=== PATIENT | male | born 1955 | race Caucasian/White ===

== ENCOUNTER 2019-07-23 14:53 | Outpatient (RCR) | payer MEDICARE, MEDICAID, SELFPAY ==
--- NOTE | 2019-07-23 15:35 | PTOPEVAL ---
Thank you for referring this patient to [facility]. Please review, sign, date and return this plan of care RHONA. I agree with and certify that the following plan of care is medically necessary. Referring Physician Date Admitting Provider: Attending Provider: Mae Ugalde MD Referring Provider: *PT Outpatient Evaluation Start: 07/23/19 15:06 Freq: Status: Active Protocol: Document 07/23/19 15:06 SAUMYA (Rec: 07/23/19 15:29 [email or web address]) Therapy Assessment Status Assessment Status Assessment Status Evaluation Evaluation Information Problem Diagnosis right shoulder pain Onset 06/05/19 Subjective Information Pt. reports that he injured Query Text:As Reported By Patient/ the arm lifting his into Family a car while transfering her about 1 1/2 months ago. Pt. reports that his biggest complication is weakness and stiffness in the right shoulder. He reports that his goal is to use the right arm more efficiently. Diagnostic Tests X-Rays For This Problem Yes: DJD MRI For This Problem Yes: possible rotator cuff pathology per pt. Prior Level of Function Activity Level (Last 3 Months) Hand Dominance Right Activity of Daily Living Ability Independent Indoor/Home Mobility Independent Community Mobility Independent Stairs Ability Independent Functional Cognition (Planning, Shopping Independent , Taking Medications) Cooking Yes Cleaning Yes Laundry Yes Shopping Yes Driving Yes Comments Additional Prior Level of Function Pt. has hx of shoulder pain in Comments the past. He reports pain was increased with recently attempting to transfer his handicapped . Pain Assessment Timing of Pain Assessment Timing of Pain Assessment Pre-Treatment Pain Scale Pain Scale Used Numeric (1 - 10) Self Report Pain Assessment Right Shoulder(s) Reported Pain Level 3 Pain Frequency Continuous Current Pain Intensity 3 Lowest Pain Intensity 2 Greatest Pain Intensity 5 Pain Aggravating Factors Lifting Pain Behaviors None Pain Relief Interventions Used By Inactivity/Rest Patient
--- NOTE | 2019-08-16 15:51 | PCPTNOTE ---
patient cancelled appt today. NGHIA
--- NOTE | 2019-08-31 15:12 | PTOPEVAL ---
Thank you for referring this patient to [facility]. Please review, sign, date and return this plan of care [facility]. I agree with and certify that the following plan of care is medically necessary. Referring Physician Date Admitting Provider: Attending Provider: Mae Ugalde MD Referring Provider: *PT Outpatient Evaluation Start: 07/23/19 15:06 Freq: Status: Active Protocol: Document 08/31/19 14:00 JTF (Rec: 08/31/19 15:08 J [email or web address]) Therapy Assessment Status Assessment Status Assessment Status Re-evaluation Evaluation Information Problem Diagnosis R shoulder pain Subjective Information patient reports he feels Query Text:As Reported By Patient/ Alright this date. he reports Family he feels he is getting better , but reports he still has pain in the R shoulder with overhead activities. he reports he is also weak in the shoulder. he has the most pain with reaching back in a high row posture. Pain Assessment Timing of Pain Assessment Timing of Pain Assessment Assessment Pain Scale Pain Scale Used Numeric (1 - 10) Self Report Pain Assessment Right Shoulder(s) Reported Pain Level 1 Pain Description Soreness Current Pain Intensity 1 Lowest Pain Intensity 1 Greatest Pain Intensity 3 Pain Score Pain Score 1: Self Report Upper Extremity Range of Motion General Upper Extremity Range of Motion Gross Upper Extremity Range of Motion arom R shoulder flex = 145 Comments degrees arom R shoulder ir = 55 degrees arom R shoulder er = 60 degrees Upper Extremity Muscle Strength Testing General Upper Extremity Strength Gross Upper Extremity Strength Comments R shoulder flex = 4/5 R shoulder ER = 4/5 R shoulder IR = 4+/5 R shoulder abd = 4/5 PT Clinical Summary Clinical Summary Protocol: PTEVCODE Clinical Summary mr. hawthorne tolerates therapy well this date. he is progressing well, and has improved greatly with his mobility of the R shoulder. he presents still with mild pain and weakness still in the R shoulder that affects his daily activit
== END 2019-09-27 17:54 | disposition home or self-care (01) ==
LOC: CHSPT 14:53
PROVIDERS: Visit Provider Internal Medicine
DX: M25.511 Pain in right shoulder (principal); M25.611 Stiffness of right shoulder, not elsewhere classified; M75.101 Unspecified rotator cuff tear or rupture of right shoulder, not specified as traumatic; M19.011 Primary osteoarthritis, right shoulder
CPT/HCPCS: 97014; 97110; 97140; 97161; G0283

== ENCOUNTER 2019-12-18 09:41 | Outpatient (CLI) | payer MEDICARE, SELFPAY ==
[2019-12-18 10:16] LABS: Hemoglobin A1C 6.2 % (<5.7)
[2019-12-18 11:22] LABS: Alanine Aminotransferase 28 U/L (16-63); Alkaline Phosphatase 77 U/L (46-116); Anion Gap 12.5 mmol/L (7-16); Aspartate Amino Transferase 21 U/L (15-37); Blood Urea Nitrogen 10 mg/dL (7-18); Calcium 9.4 mg/dL (8.5-10.1); Carbon Dioxide 32 mmol/L (21-32); Chloride 103 mmol/L (98-108); Cholesterol 169 mg/dL (0-200); Creatine Kinase 98 U/L (39-308); Estimated Glomerular Filt Rate > 60; Glucose 123 mg/dL (70-99); HDL Direct 72 mg/dL (40-60); LDL Cholesterol Calculated 81 mg/dL (<130); Osmolality Calculated 296 mOsm/kg (285-295); Potassium 4.5 mmol/L (3.5-5.1); Prostate Specific Antigen 1.6 ng/mL (< OR = 4.0); Sodium 143 mmol/L (136-145); Total Protein 6.7 g/dL (6.4-8.2); Triglycerides 80 mg/dL (0-150)
[2019-12-18 13:14] LABS: Add Urine Microscopic? YES; Appearance Urine Clear (Clear); Bilirubin Urine Negative (Negative); Blood Urine Negative (Negative); Color Urine Yellow (Yellow); Glucose Urine UA 1+ (Negative); Ketones Urine Negative (Negative); Leukocyte Esterase Ur Negative (Negative); Nitrate Urine Negative (Negative); Protein Urine Trace (Negative); Urobilinogen Urine 0.2 mg/dL (0.2-1.0)
[2019-12-18 13:22] LABS: Bacteria Urine Trace /hpf; Other Sediment Urine Spermatazoa /hpf; RBC Urine None seen /hpf (0-2); Squamous Epithelial Cell Urine Rare /hpf (Few); WBC Urine None seen /hpf (0-3)
[2019-12-18 13:23] LABS: Mucus Urine Few /lpf
[2019-12-18 13:24] LABS: Creatinine Urine 100.99 mg/dL (40-278); Microalbumin Urine Random 29.3 mg/L
== END 2019-12-18 09:42 | disposition home or self-care (01) ==
PROVIDERS: PCP Internal Medicine; Visit Provider Internal Medicine
DX: E78.2 Mixed hyperlipidemia (principal); E11.9 Type 2 diabetes mellitus without complications; I10 Essential (primary) hypertension; Z12.5 Encounter for screening for malignant neoplasm of prostate
CPT/HCPCS: 36415; 80053; 80061; 81001; 82043; 82550; 83036; 84153; G0103

== ENCOUNTER 2019-12-26 09:29 | Outpatient (CLI) | payer MEDICARE, MEDICAID, SELFPAY ==
--- NOTE | ~2019-12-26 | US_ITS ---
EXAMINATION: US carotid duplex BI DATE: 12/26/2019 09:55 INDICATION: Carotid stenosis TECHNIQUE: Grayscale, color Doppler, and pulsed Doppler images of the cervical carotid arteries were obtained. The degree of vessel stenosis is placed in one of the following categories: normal, <50%, 5 0-69%, >=70% but less than near-occlusion, near-occlusion, or total occlusion. Note that percent sten osis relative to normal distal artery lumen diameter is indirectly measured from velocity measurement s as described by Sathish, et al. Radiology 2003; [id number]:[id number]. COMPARISON: 10/27/2018 FINDINGS: RIGHT: The right common carotid artery (CCA) peak systolic velocity (PSV) is 102 cm/s. The right internal ca rotid artery (ICA) PSV is 102 cm/s. The right ICA end-diastolic velocity (EDV) is 31 cm/s. The right ICA/CCA PSV ratio is 1.0. Grayscale and color Doppler images yield an estimate of <50% diameter reduc tion from plaque in the ICA. The external carotid artery (ECA) PSV is 100 cm/s. There is antegrade fl ow in the right vertebral artery. LEFT: The left CCA PSV is 95 cm/s. The left ICA PSV is 108 cm/s. The left ICA EDV is 29 cm/s. The left ICA/ CCA PSV ratio is 1.1. Grayscale and color Doppler images yield an estimate of <50% diameter reduction from plaque in the ICA. The ECA PSV is 188 cm/s. There is antegrade flow in the left vertebral arter y. IMPRESSION: 1. <50% stenosis in the right internal carotid artery. 2. <50% stenosis in the left internal carotid artery. Reviewed, dictated and finalized at location A.
== END 2019-12-26 09:30 | disposition home or self-care (01) ==
LOC: CHSIMG 09:31
PROVIDERS: PCP Internal Medicine; Visit Provider Internal Medicine
DX: I65.23 Occlusion and stenosis of bilateral carotid arteries (principal)
CPT/HCPCS: 93880

== ENCOUNTER 2020-06-30 13:21 | Outpatient (CLI) | payer MEDICARE, SELFPAY ==
[2020-06-30 13:36] LABS: Basophils Absolute Auto 0.06 K/mm3 (0.00-0.10); Basophils Percent Auto 0.8 % (0.0-1.0); Eosinophils Absolute Auto 0.27 K/mm3 (0.02-0.50); Eosinophils Percent Auto 3.4 % (1.0-6.0); Hematocrit 36.4 % (37.0-46.0); Hemoglobin 11.7 g/dL (12.4-15.3); Immature Granulocyte Absolute 0.06 K/mm3 (0.00-0.00); Immature Granulocyte Percent A 0.8 % (0.0-0.0); Lymphocytes Absolute Auto 2.63 K/mm3 (1.10-4.50); Lymphocytes Percent Auto 32.9 % (18.0-42.0); Mean Corpuscular HGB Conc 32.1 g/dL (32.0-36.0); Mean Corpuscular Hemoglobin 29.4 pg (27.0-31.0); Mean Corpuscular Volume 91.5 fL (78.0-102.0); Mean Platelet Volume 8.8 fl (8.7-11.0); Monocytes Absolute Auto 0.74 K/mm3 (0.10-0.90); Monocytes Percent Auto 9.3 % (2.0-11.0); Neutrophils Absolute Auto 4.2 K/mm3 (1.7-7.2); Neutrophils Percent Auto 52.8 % (50.0-70.0); Platelet Count Result 177 K/mm3 (150-420); Red Blood Count 3.98 M/mm3 (4.70-6.10); Red Cell Distribution Width 14.3 % (11.6-14.4)
[2020-06-30 13:50] LABS: Add Urine Microscopic? NO; Appearance Urine Clear (Clear); Bilirubin Urine Negative (Negative); Blood Urine Negative (Negative); Color Urine Yellow (Yellow); Glucose Urine UA Negative (Negative); Ketones Urine Negative (Negative); Leukocyte Esterase Ur Negative (Negative); Nitrate Urine Negative (Negative); Protein Urine Negative (Negative); Specific Grav Ur 1.015 (1.010-1.020); Urobilinogen Urine 0.2 mg/dL (0.2-1.0); pH Urine 6.5 (5.0-8.0)
[2020-06-30 13:56] LABS: Hemoglobin A1C 6.1 % (<5.7)
[2020-06-30 14:06] LABS: MALB Creatinine Ratio 13.1 mg/g (0-30); Microalbumin Urine Random < 13.0 mg/L
[2020-06-30 15:27] LABS: Alanine Aminotransferase 28 U/L (16-63); Albumin Level 3.8 g/dL (3.4-5.0); Alkaline Phosphatase 72 U/L (46-116); Anion Gap 8 mmol/L (8-16); Aspartate Amino Transferase 18 U/L (15-37); Bilirubin,Total 0.7 mg/dL (0.00-1.00); Blood Urea Nitrogen 10 mg/dL (7-18); Calcium 9.2 mg/dL (8.5-10.1); Carbon Dioxide 31 mmol/L (21-32); Chloride 104 mmol/L (98-108); Cholesterol 162 mg/dL (0-200); Creatine Kinase 103 U/L (39-308); Estimated Glomerular Filt Rate > 60; Glucose 63 mg/dL (70-99); HDL Direct 72 mg/dL (40-60); LDL Cholesterol Calculated 70 mg/dL (<130); Osmolality Calculated 293 mOsm/kg (285-295); Potassium 4.4 mmol/L (3.5-5.1); Sodium 143 mmol/L (136-145); Total Protein 6.4 g/dL (6.4-8.2); Triglycerides 100 mg/dL (0-150); Vitamin B12 1154 pg/mL (193-986)
== END 2020-06-30 13:22 | disposition home or self-care (01) ==
LOC: CHSLAB 13:25
PROVIDERS: PCP Internal Medicine; Visit Provider Internal Medicine
DX: E11.9 Type 2 diabetes mellitus without complications (principal); I10 Essential (primary) hypertension; E78.2 Mixed hyperlipidemia; E53.8 Deficiency of other specified B group vitamins
CPT/HCPCS: 36415; 80053; 80061; 81003; 82043; 82550; 82607; 83036; 85025

== ENCOUNTER 2021-01-12 09:53 | Outpatient (CLI) | payer MEDICARE, SELFPAY ==
[2021-01-12 10:09] LABS: Basophils Absolute Auto 0.04 K/mm3 (0.00-0.10); Basophils Percent Auto 0.6 % (0.0-1.0); Eosinophils Absolute Auto 0.45 K/mm3 (0.02-0.50); Eosinophils Percent Auto 7.1 % (1.0-6.0); Hematocrit 36.8 % (37.0-46.0); Hemoglobin 11.9 g/dL (12.4-15.3); Immature Granulocyte Absolute 0.05 K/mm3 (0.00-0.00); Immature Granulocyte Percent A 0.8 % (0.0-0.0); Lymphocytes Absolute Auto 2.03 K/mm3 (1.10-4.50); Lymphocytes Percent Auto 32.2 % (18.0-42.0); Mean Corpuscular HGB Conc 32.3 g/dL (32.0-36.0); Mean Corpuscular Hemoglobin 28.9 pg (27.0-31.0); Mean Corpuscular Volume 89.3 fL (78.0-102.0); Mean Platelet Volume 8.9 fl (8.7-11.0); Monocytes Absolute Auto 0.81 K/mm3 (0.10-0.90); Monocytes Percent Auto 12.9 % (2.0-11.0); Neutrophils Absolute Auto 2.9 K/mm3 (1.7-7.2); Neutrophils Percent Auto 46.4 % (50.0-70.0); Platelet Count Result 180 K/mm3 (150-420); Red Blood Count 4.12 M/mm3 (4.70-6.10); Red Cell Distribution Width 13.3 % (11.6-14.4); White Blood Count 6.3 K/mm3 (4.8-10.8)
[2021-01-12 10:33] LABS: Hemoglobin A1C 6.1 % (<5.7)
[2021-01-12 11:11] LABS: Alanine Aminotransferase 29 U/L (16-63); Albumin Level 3.7 g/dL (3.4-5.0); Alkaline Phosphatase 91 U/L (46-116); Anion Gap 9 mmol/L (8-16); Aspartate Amino Transferase 16 U/L (15-37); Bilirubin,Total 0.4 mg/dL (0.00-1.00); Blood Urea Nitrogen 16 mg/dL (7-18); Calcium 9.2 mg/dL (8.5-10.1); Carbon Dioxide 28 mmol/L (21-32); Chloride 105 mmol/L (98-108); Cholesterol 159 mg/dL (0-200); Creatine Kinase 51 U/L (39-308); Estimated Glomerular Filt Rate 53; Glucose 153 mg/dL (70-99); HDL Direct 64 mg/dL (40-60); LDL Cholesterol Calculated 73 mg/dL (<130); Osmolality Calculated 298 mOsm/kg (285-295); Potassium 4.3 mmol/L (3.5-5.1); Prostate Specific Antigen 2.5 ng/mL (< OR = 4.0); Sodium 142 mmol/L (136-145); Total Protein 6.6 g/dL (6.4-8.2); Triglycerides 111 mg/dL (0-150)
[2021-01-12 17:20] LABS: Add Urine Microscopic? YES; Appearance Urine Clear (Clear); Bilirubin Urine Negative (Negative); Blood Urine Negative (Negative); Color Urine Yellow (Yellow); Glucose Urine UA Trace (Negative); Ketones Urine Trace (Negative); Leukocyte Esterase Ur Negative (Negative); Nitrate Urine Negative (Negative); Protein Urine Negative (Negative); Specific Grav Ur >= 1.030 (1.010-1.020); Urobilinogen Urine 0.2 mg/dL (0.2-1.0); pH Urine 5.5 (5.0-8.0)
[2021-01-12 17:29] LABS: Bacteria Urine Trace /hpf; RBC Urine 0-2 /hpf (0-2); Squamous Epithelial Cell Urine Rare /hpf (Few); WBC Urine 0-3 /hpf (0-3)
[2021-01-12 17:30] LABS: Mucus Urine Moderate /lpf
[2021-01-12 17:31] LABS: Other Sediment Urine Spermatazoa /hpf
[2021-01-15 08:08] LABS: Carcinoembryonic Antigen 1.6 ng/mL (0.0-2.4)
== END 2021-01-12 09:54 | disposition home or self-care (01) ==
LOC: CHSLAB 10:00
PROVIDERS: PCP Internal Medicine; Visit Provider Internal Medicine
DX: E11.65 Type 2 diabetes mellitus with hyperglycemia (principal); I10 Essential (primary) hypertension; E78.2 Mixed hyperlipidemia; Z85.038 Personal history of other malignant neoplasm of large intestine; Z12.5 Encounter for screening for malignant neoplasm of prostate
CPT/HCPCS: 36415; 80053; 80061; 81001; 82378; 82550; 83036; 84153; 85025; G0103

== ENCOUNTER 2021-01-15 13:34 | Outpatient (CLI) | payer MEDICARE, MEDICAID, SELFPAY ==
--- NOTE | ~2021-01-15 | US_ITS ---
EXAMINATION: US carotid duplex BI DATE: 01/15/2021 14:03 INDICATION: Carotid stenosis. TECHNIQUE: Grayscale, color Doppler, and pulsed Doppler images of the cervical carotid arteries were obtained. The degree of vessel stenosis is placed in one of the following categories: normal, <50%, 5 0-69%, >=70% but less than near-occlusion, near-occlusion, or total occlusion. Note that percent sten osis relative to normal distal artery lumen diameter is indirectly measured from velocity measurement s as described by Sathish, et al. Radiology 2003; [id number]:[id number]. COMPARISON: Ultrasound 12/26/2019 FINDINGS: RIGHT: The right common carotid artery (CCA) peak systolic velocity (PSV) is 87 cm/s. The right internal car otid artery (ICA) PSV is 113 cm/s. The right ICA end-diastolic velocity (EDV) is 39 cm/s. The right I CA/CCA PSV ratio is 1.3. Grayscale and color Doppler images yield an estimate of <50% diameter reduct ion from plaque in the ICA. There is antegrade flow in the right vertebral artery. LEFT: The left CCA PSV is 105 cm/s. The left ICA PSV is 89 cm/s. The left ICA EDV is 27 cm/s. The left ICA/ CCA PSV ratio is 0.8. Grayscale and color Doppler images yield an estimate of <50% diameter reduction from plaque in the ICA. There is antegrade flow in the left vertebral artery. IMPRESSION: 1. <50% stenosis in the right internal carotid artery. 2. <50% stenosis in the left internal carotid artery. Reviewed, dictated and finalized at location B.
== END 2021-01-15 13:35 | disposition home or self-care (01) ==
LOC: CHSIMG 13:35
PROVIDERS: PCP Internal Medicine; Visit Provider Internal Medicine
DX: I65.23 Occlusion and stenosis of bilateral carotid arteries (principal)
CPT/HCPCS: 93880

== ENCOUNTER 2021-02-20 12:08 | Outpatient (CLI) | payer MEDICARE, MEDICAID, SELFPAY ==
[2021-02-20 13:25] LABS: Anion Gap 10 mmol/L (8-16); Blood Urea Nitrogen 11 mg/dL (7-18); Calcium 9.3 mg/dL (8.5-10.1); Carbon Dioxide 28 mmol/L (21-32); Chloride 105 mmol/L (98-108); Estimated Glomerular Filt Rate > 60; Glucose 123 mg/dL (70-99); Osmolality Calculated 296 mOsm/kg (285-295); Potassium 4.7 mmol/L (3.5-5.1); Sodium 143 mmol/L (136-145)
== END 2021-02-20 12:09 | disposition home or self-care (01) ==
LOC: CHSLAB 12:11
PROVIDERS: PCP Internal Medicine; Visit Provider Internal Medicine
DX: E86.0 Dehydration (principal)
CPT/HCPCS: 36415; 80048

== ENCOUNTER 2021-07-17 11:51 | Outpatient (CLI) | payer MEDICARE, SELFPAY ==
[2021-07-17 12:29] LABS: Creatinine Urine 84.83 mg/dL (40-278); Hemoglobin A1C 6.1 % (<5.7); MALB Creatinine Ratio 15.3 mg/g (0-30); Microalbumin Urine Random < 13.0 mg/L
[2021-07-17 12:48] LABS: Add Urine Microscopic? NO; Appearance Urine Clear (Clear); Bilirubin Urine Negative (Negative); Blood Urine Negative (Negative); Color Urine Light Yellow (Yellow); Glucose Urine UA Negative (Negative); Ketones Urine Negative (Negative); Leukocyte Esterase Ur Negative (Negative); Nitrate Urine Negative (Negative); Protein Urine Negative (Negative); Specific Grav Ur 1.015 (1.010-1.020); Urobilinogen Urine 0.2 mg/dL (0.2-1.0)
[2021-07-17 12:52] LABS: Alanine Aminotransferase 22 U/L (16-63); Albumin Level 3.7 g/dL (3.4-5.0); Alkaline Phosphatase 85 U/L (46-116); Anion Gap 7 mmol/L (8-16); Aspartate Amino Transferase 14 U/L (15-37); Bilirubin,Total 0.9 mg/dL (0.00-1.00); Blood Urea Nitrogen 16 mg/dL (7-18); Calcium 9.1 mg/dL (8.5-10.1); Carbon Dioxide 30 mmol/L (21-32); Chloride 104 mmol/L (98-108); Cholesterol 154 mg/dL (0-200); Creatine Kinase 81 U/L (39-308); Estimated Glomerular Filt Rate 60; Glucose 123 mg/dL (70-99); HDL Direct 63 mg/dL (40-60); LDL Cholesterol Calculated 65 mg/dL (<130); Osmolality Calculated 294 mOsm/kg (285-295); Potassium 4.3 mmol/L (3.5-5.1); Sodium 141 mmol/L (136-145); Total Protein 6.6 g/dL (6.4-8.2); Triglycerides 131 mg/dL (0-150)
== END 2021-07-17 11:52 | disposition home or self-care (01) ==
LOC: CHSLAB 11:53
PROVIDERS: PCP Internal Medicine; Visit Provider Internal Medicine
DX: E78.2 Mixed hyperlipidemia (principal); I10 Essential (primary) hypertension; E11.9 Type 2 diabetes mellitus without complications
CPT/HCPCS: 36415; 80053; 80061; 81003; 82043; 82550; 83036

== ENCOUNTER 2022-01-21 11:23 | Outpatient (CLI) | payer MEDICARE, SELFPAY ==
[2022-01-21 11:36] LABS: Basophils Absolute Auto 0.04 K/mm3 (0.00-0.10); Basophils Percent Auto 0.5 % (0.0-1.0); Eosinophils Absolute Auto 0.32 K/mm3 (0.02-0.50); Eosinophils Percent Auto 3.8 % (1.0-6.0); Hematocrit 38.2 % (37.0-46.0); Hemoglobin 12.2 g/dL (12.4-15.3); Immature Granulocyte Absolute 0.04 K/mm3 (0.00-0.00); Immature Granulocyte Percent A 0.5 % (0.0-0.0); Lymphocytes Absolute Auto 1.85 K/mm3 (1.10-4.50); Lymphocytes Percent Auto 21.9 % (18.0-42.0); Mean Corpuscular HGB Conc 31.9 g/dL (32.0-36.0); Mean Corpuscular Hemoglobin 28.8 pg (27.0-31.0); Mean Corpuscular Volume 90.1 fL (78.0-102.0); Mean Platelet Volume 9.4 fl (8.7-11.0); Monocytes Absolute Auto 0.83 K/mm3 (0.10-0.90); Monocytes Percent Auto 9.8 % (2.0-11.0); Neutrophils Absolute Auto 5.4 K/mm3 (1.7-7.2); Neutrophils Percent Auto 63.5 % (50.0-70.0); Platelet Count Result 177 K/mm3 (150-420); Red Blood Count 4.24 M/mm3 (4.70-6.10); Red Cell Distribution Width 14.2 % (11.6-14.4); White Blood Count 8.4 K/mm3 (4.8-10.8)
[2022-01-21 11:42] LABS: Add Urine Microscopic? YES; Appearance Urine Clear (Clear); Bilirubin Urine Negative (Negative); Blood Urine Negative (Negative); Color Urine Yellow (Yellow); Glucose Urine UA 1+ (Negative); Ketones Urine Negative (Negative); Leukocyte Esterase Ur Negative (Negative); Nitrate Urine Negative (Negative); Protein Urine Negative (Negative); Specific Grav Ur >= 1.030 (1.010-1.020); Urobilinogen Urine 0.2 mg/dL (0.2-1.0)
[2022-01-21 11:55] LABS: Hemoglobin A1C 6.1 % (<5.7)
[2022-01-21 11:57] LABS: Creatinine Urine 206.96 mg/dL (40-278); MALB Creatinine Ratio 10.3 mg/g (0-30); Microalbumin Urine Random 21.5 mg/L
[2022-01-21 11:59] LABS: Bacteria Urine None seen /hpf; RBC Urine 0-2 /hpf (0-2); Squamous Epithelial Cell Urine Rare /hpf (Few); WBC Urine 0-3 /hpf (0-3)
[2022-01-21 12:17] LABS: Alanine Aminotransferase 22 U/L (16-63); Albumin Level 3.8 g/dL (3.4-5.0); Alkaline Phosphatase 89 U/L (46-116); Anion Gap 7 mmol/L (8-16); Aspartate Amino Transferase 17 U/L (15-37); Bilirubin,Total 0.9 mg/dL (0.00-1.00); Blood Urea Nitrogen 14 mg/dL (7-18); Calcium 9.2 mg/dL (8.5-10.1); Carbon Dioxide 27 mmol/L (21-32); Chloride 101 mmol/L (98-108); Cholesterol 152 mg/dL (0-200); Creatine Kinase 110 U/L (39-308); Estimated Glomerular Filt Rate 57; Glucose 152 mg/dL (70-99); HDL Direct 83 mg/dL (40-60); LDL Cholesterol Calculated 58 mg/dL (<130); Osmolality Calculated 283 mOsm/kg (285-295); Potassium 4.4 mmol/L (3.5-5.1); Sodium 135 mmol/L (136-145); Triglycerides 54 mg/dL (0-150); Vitamin B12 1431 pg/mL (193-986)
[2022-01-24 03:42] LABS: Carcinoembryonic Antigen 1.8 ng/mL (0.0-2.4)
== END 2022-01-21 11:24 | disposition home or self-care (01) ==
LOC: CHSLAB 11:25
PROVIDERS: PCP Internal Medicine; Visit Provider Internal Medicine
DX: Z85.038 Personal history of other malignant neoplasm of large intestine (principal); I10 Essential (primary) hypertension; E78.2 Mixed hyperlipidemia; E11.40 Type 2 diabetes mellitus with diabetic neuropathy, unspecified
CPT/HCPCS: 36415; 80053; 80061; 81001; 82043; 82378; 82550; 82607; 83036; 85025

== ENCOUNTER 2022-08-05 10:58 | Outpatient (CLI) | payer MEDICARE, SELFPAY ==
[2022-08-05 11:13] LABS: Basophils Absolute Auto 0.06 K/mm3 (0.00-0.10); Basophils Percent Auto 0.8 % (0.0-1.0); Eosinophils Absolute Auto 0.36 K/mm3 (0.02-0.50); Eosinophils Percent Auto 4.8 % (1.0-6.0); Hematocrit 36.1 % (37.0-46.0); Hemoglobin 11.8 g/dL (12.4-15.3); Immature Granulocyte Absolute 0.06 K/mm3 (0.00-0.00); Immature Granulocyte Percent A 0.8 % (0.0-0.0); Lymphocytes Absolute Auto 2.18 K/mm3 (1.10-4.50); Lymphocytes Percent Auto 29.1 % (18.0-42.0); Mean Corpuscular HGB Conc 32.7 g/dL (32.0-36.0); Mean Corpuscular Hemoglobin 28.9 pg (27.0-31.0); Mean Corpuscular Volume 88.5 fL (78.0-102.0); Mean Platelet Volume 9.3 fl (8.7-11.0); Monocytes Absolute Auto 0.74 K/mm3 (0.10-0.90); Monocytes Percent Auto 9.9 % (2.0-11.0); Neutrophils Absolute Auto 4.1 K/mm3 (1.7-7.2); Neutrophils Percent Auto 54.6 % (50.0-70.0); Platelet Count Result 174 K/mm3 (150-420); Red Blood Count 4.08 M/mm3 (4.70-6.10); Red Cell Distribution Width 14.3 % (11.6-14.4); White Blood Count 7.5 K/mm3 (4.8-10.8)
[2022-08-05 11:23] LABS: Hemoglobin A1C 6.3 % (<5.7)
[2022-08-05 12:43] LABS: Alanine Aminotransferase 31 U/L (16-63); Albumin Level 3.9 g/dL (3.4-5.0); Alkaline Phosphatase 70 U/L (46-116); Anion Gap 7 mmol/L (8-16); Aspartate Amino Transferase 23 U/L (15-37); Blood Urea Nitrogen 17 mg/dL (7-18); Calcium 9.2 mg/dL (8.5-10.1); Carbon Dioxide 29 mmol/L (21-32); Chloride 103 mmol/L (98-108); Cholesterol 171 mg/dL (0-200); Estimated Glomerular Filt Rate 52; Free T4 Free Thyroxine 0.88 ng/dL (0.76-1.46); Glucose 114 mg/dL (70-99); HDL Direct 83 mg/dL (40-60); LDL Cholesterol Calculated 77 mg/dL (<130); Osmolality Calculated 290 mOsm/kg (285-295); Potassium 4.4 mmol/L (3.5-5.1); Prostate Specific Antigen 2.9 ng/mL (< OR = 4.0); Sodium 139 mmol/L (136-145); Thyroid Stimulating Hormone 3.85 uIU/mL (0.36-3.74); Total Protein 6.7 g/dL (6.4-8.2); Triglycerides 56 mg/dL (0-150); Vitamin B12 1141 pg/mL (193-986)
[2022-08-05 14:31] LABS: Add Urine Microscopic? YES; Appearance Urine Clear (Clear); Bilirubin Urine Negative (Negative); Blood Urine Negative (Negative); Color Urine Light Yellow (Yellow); Glucose Urine UA Trace (Negative); Ketones Urine Negative (Negative); Leukocyte Esterase Ur Negative (Negative); Nitrate Urine Negative (Negative); Protein Urine Negative (Negative); Specific Grav Ur 1.015 (1.010-1.020); Urobilinogen Urine 0.2 mg/dL (0.2-1.0); pH Urine 6.5 (5.0-8.0)
[2022-08-05 14:37] LABS: Creatinine Urine 105.32 mg/dL (40-278); MALB Creatinine Ratio 12.3 mg/g (0-30); Microalbumin Urine Random < 13.0 mg/L; RBC Urine 0-2 /hpf (0-2); Squamous Epithelial Cell Urine Rare /hpf (Few); WBC Urine 0-3 /hpf (0-3)
[2022-08-05 14:38] LABS: Bacteria Urine None seen /hpf; Other Sediment Urine Spermatazoa /hpf
[2022-08-10 07:58] LABS: Carcinoembryonic Antigen 1.9 ng/mL (0.0-2.4)
== END 2022-08-05 10:59 | disposition home or self-care (01) ==
LOC: CHSLAB 11:01
PROVIDERS: PCP Internal Medicine; Visit Provider Internal Medicine
DX: R21 Rash and other nonspecific skin eruption (principal); I10 Essential (primary) hypertension; E11.9 Type 2 diabetes mellitus without complications; E53.8 Deficiency of other specified B group vitamins; Z85.038 Personal history of other malignant neoplasm of large intestine; Z12.5 Encounter for screening for malignant neoplasm of prostate
CPT/HCPCS: 36415; 80053; 80061; 81001; 82043; 82378; 82607; 83036; 84153; 84439; 84443; 85025; G0103

== ENCOUNTER 2022-09-02 14:33 | Outpatient (CLI) | payer MEDICARE, SELFPAY ==
[2022-09-02 14:45] LABS: Basophils Absolute Auto 0.06 K/mm3 (0.00-0.10); Basophils Percent Auto 0.7 % (0.0-1.0); Eosinophils Absolute Auto 0.33 K/mm3 (0.02-0.50); Hematocrit 37.6 % (37.0-46.0); Hemoglobin 12.2 g/dL (12.4-15.3); Immature Granulocyte Absolute 0.04 K/mm3 (0.00-0.00); Immature Granulocyte Percent A 0.5 % (0.0-0.0); Lymphocytes Absolute Auto 2.22 K/mm3 (1.10-4.50); Lymphocytes Percent Auto 27.1 % (18.0-42.0); Mean Corpuscular HGB Conc 32.4 g/dL (32.0-36.0); Mean Corpuscular Hemoglobin 28.7 pg (27.0-31.0); Mean Corpuscular Volume 88.5 fL (78.0-102.0); Mean Platelet Volume 9.2 fl (8.7-11.0); Monocytes Absolute Auto 0.72 K/mm3 (0.10-0.90); Monocytes Percent Auto 8.8 % (2.0-11.0); Neutrophils Absolute Auto 4.8 K/mm3 (1.7-7.2); Neutrophils Percent Auto 58.9 % (50.0-70.0); Platelet Count Result 182 K/mm3 (150-420); Red Blood Count 4.25 M/mm3 (4.70-6.10); Red Cell Distribution Width 14.3 % (11.6-14.4); White Blood Count 8.2 K/mm3 (4.8-10.8)
[2022-09-02 15:05] LABS: Anion Gap 5 mmol/L (8-16); Blood Urea Nitrogen 17 mg/dL (7-18); Calcium 9.3 mg/dL (8.5-10.1); Carbon Dioxide 32 mmol/L (21-32); Chloride 101 mmol/L (98-108); Estimated Glomerular Filt Rate 55; Glucose 81 mg/dL (70-99); Osmolality Calculated 286 mOsm/kg (285-295); Potassium 4.4 mmol/L (3.5-5.1); Sodium 138 mmol/L (136-145)
== END 2022-09-02 14:34 | disposition home or self-care (01) ==
PROVIDERS: PCP Internal Medicine; Visit Provider Internal Medicine
DX: E86.0 Dehydration (principal); D64.9 Anemia, unspecified
CPT/HCPCS: 36415; 80048; 85025

== ENCOUNTER 2022-10-05 14:15 | Outpatient (CLI) | payer MEDICARE, SELFPAY ==
[2022-10-05 14:30] LABS: Basophils Absolute Auto 0.05 K/mm3 (0.00-0.10); Basophils Percent Auto 0.6 % (0.0-1.0); Eosinophils Absolute Auto 0.36 K/mm3 (0.02-0.50); Eosinophils Percent Auto 4.6 % (1.0-6.0); Hematocrit 37.8 % (37.0-46.0); Hemoglobin 12.2 g/dL (12.4-15.3); Immature Granulocyte Absolute 0.06 K/mm3 (0.00-0.00); Immature Granulocyte Percent A 0.8 % (0.0-0.0); Lymphocytes Absolute Auto 2.03 K/mm3 (1.10-4.50); Lymphocytes Percent Auto 25.7 % (18.0-42.0); Mean Corpuscular HGB Conc 32.3 g/dL (32.0-36.0); Mean Corpuscular Hemoglobin 28.9 pg (27.0-31.0); Mean Corpuscular Volume 89.6 fL (78.0-102.0); Mean Platelet Volume 9.3 fl (8.7-11.0); Monocytes Percent Auto 7.6 % (2.0-11.0); Neutrophils Absolute Auto 4.8 K/mm3 (1.7-7.2); Neutrophils Percent Auto 60.7 % (50.0-70.0); Platelet Count Result 183 K/mm3 (150-420); Red Blood Count 4.22 M/mm3 (4.70-6.10); Red Cell Distribution Width 14.3 % (11.6-14.4); White Blood Count 7.9 K/mm3 (4.8-10.8)
== END 2022-10-05 14:16 | disposition home or self-care (01) ==
LOC: CHSLAB 14:17
PROVIDERS: PCP Internal Medicine; Visit Provider Internal Medicine
DX: D64.0 Hereditary sideroblastic anemia (principal)
CPT/HCPCS: 36415; 85025

== ENCOUNTER 2023-04-20 13:09 | Outpatient (CLI) | payer MEDICARE, SELFPAY ==
[2023-04-20 13:25] LABS: Basophils Absolute Auto 0.06 K/mm3 (0.00-0.10); Basophils Percent Auto 0.8 % (0.0-1.0); Eosinophils Absolute Auto 0.33 K/mm3 (0.02-0.50); Eosinophils Percent Auto 4.6 % (1.0-6.0); Hematocrit 36.8 % (37.0-46.0); Immature Granulocyte Absolute 0.04 K/mm3 (0.00-0.00); Immature Granulocyte Percent A 0.6 % (0.0-0.0); Mean Corpuscular HGB Conc 32.6 g/dL (32.0-36.0); Mean Corpuscular Hemoglobin 29.9 pg (27.0-31.0); Mean Corpuscular Volume 91.5 fL (78.0-102.0); Mean Platelet Volume 9.4 fl (8.7-11.0); Monocytes Absolute Auto 0.64 K/mm3 (0.10-0.90); Monocytes Percent Auto 8.9 % (2.0-11.0); Neutrophils Absolute Auto 4.3 K/mm3 (1.7-7.2); Neutrophils Percent Auto 60.1 % (50.0-70.0); Platelet Count Result 181 K/mm3 (150-420); Red Blood Count 4.02 M/mm3 (4.70-6.10); Red Cell Distribution Width 14.7 % (11.6-14.4); White Blood Count 7.2 K/mm3 (4.8-10.8)
[2023-04-20 13:33] LABS: Appearance Urine Clear (Clear); Bilirubin Urine Negative (Negative); Blood Urine Negative (Negative); Color Urine Light Yellow (Yellow); Glucose Urine UA 1+ (Negative); Ketones Urine Negative (Negative); Leukocyte Esterase Ur Negative LEU/UL (Negative); Nitrate Urine Negative (Negative); Protein Urine Negative (Negative)
[2023-04-20 13:52] LABS: Creatinine Urine 67.12 mg/dL (40-278); MALB Creatinine Ratio 19.3 mg/g (0-30); Microalbumin Urine Random < 13.0 mg/L
[2023-04-20 13:54] LABS: Hemoglobin A1C 6.2 % (<5.7)
[2023-04-20 13:59] LABS: Add Urine Microscopic? YES; Bacteria Urine None seen /hpf; RBC Urine None seen /hpf (0-2); WBC Urine None seen /hpf (0-3)
[2023-04-20 14:24] LABS: Alanine Aminotransferase 23 U/L (16-63); Albumin Level 3.7 g/dL (3.4-5.0); Alkaline Phosphatase 82 U/L (46-116); Anion Gap 7 mmol/L (8-16); Aspartate Amino Transferase 18 U/L (15-37); Bilirubin,Total 0.9 mg/dL (0.00-1.00); Blood Urea Nitrogen 16 mg/dL (7-18); Calcium 9.3 mg/dL (8.5-10.1); Carbon Dioxide 30 mmol/L (21-32); Chloride 105 mmol/L (98-108); Cholesterol 151 mg/dL (0-200); Creatine Kinase 93 U/L (39-308); Estimated Glomerular Filt Rate > 60; Ferritin 60 ng/mL (26-388); Free T3 2.36 pg/mL (2.18-3.98); Free T4 Free Thyroxine 0.87 ng/dL (0.76-1.46); Glucose 116 mg/dL (70-99); HDL Direct 66 mg/dL (40-60); Iron 88 ug/dL (65-175); LDL Cholesterol Calculated 77 mg/dL (<130); Osmolality Calculated 296 mOsm/kg (285-295); Potassium 4.6 mmol/L (3.5-5.1); Sodium 142 mmol/L (136-145); Thyroid Stimulating Hormone 2.45 uIU/mL (0.36-3.74); Total Protein 6.5 g/dL (6.4-8.2); Triglycerides 38 mg/dL (0-150); Vitamin B12 1023 pg/mL (193-986)
== END 2023-04-20 13:10 | disposition home or self-care (01) ==
LOC: CHSLAB 13:12
PROVIDERS: PCP Internal Medicine; Visit Provider Internal Medicine
DX: N39.0 Urinary tract infection, site not specified (principal); I10 Essential (primary) hypertension; E78.2 Mixed hyperlipidemia; E11.40 Type 2 diabetes mellitus with diabetic neuropathy, unspecified; E53.8 Deficiency of other specified B group vitamins; D64.9 Anemia, unspecified
CPT/HCPCS: 36415; 80053; 80061; 81001; 82043; 82550; 82607; 82728; 83036; 83540; 84439; 84443; 84481; 85025

== ENCOUNTER 2023-10-20 12:32 | Outpatient (CLI) | payer MEDICARE, MEDICAID, SELFPAY ==
[2023-10-20 12:50] LABS: Basophils Absolute Auto 0.06 K/mm3 (0.00-0.10); Basophils Percent Auto 0.8 % (0.0-1.0); Eosinophils Absolute Auto 0.34 K/mm3 (0.02-0.50); Eosinophils Percent Auto 4.3 % (1.0-6.0); Hematocrit 35.6 % (37.0-46.0); Hemoglobin 11.4 g/dL (12.4-15.3); Immature Granulocyte Absolute 0.05 K/mm3 (0.00-0.00); Immature Granulocyte Percent A 0.6 % (0.0-0.0); Immature Reticulocyte Fraction 27.7 % (2.0-16.52); Lymphocytes Absolute Auto 1.56 K/mm3 (1.10-4.50); Lymphocytes Percent Auto 19.7 % (18.0-42.0); Mean Corpuscular Hemoglobin 28.6 pg (27.0-31.0); Mean Corpuscular Volume 89.2 fL (78.0-102.0); Mean Platelet Volume 9.2 fl (8.7-11.0); Monocytes Absolute Auto 0.69 K/mm3 (0.10-0.90); Monocytes Percent Auto 8.7 % (2.0-11.0); Neutrophils Absolute Auto 5.2 K/mm3 (1.7-7.2); Neutrophils Percent Auto 65.9 % (50.0-70.0); Platelet Count Result 163 K/mm3 (150-420); Red Blood Count 3.99 M/mm3 (4.70-6.10); Red Cell Distribution Width 14.6 % (11.6-14.4); Reticulocyte Hemoglobin Conten 32.1 pg (28.0-35.0); Reticulocyte Percent 1.62 % (0.50-1.50); Reticulocytes Absolute 0.06 M/mm3 (0.02-0.1); White Blood Count 7.9 K/mm3 (4.8-10.8)
[2023-10-20 12:54] LABS: Appearance Urine Clear (Clear); Bilirubin Urine Negative (Negative); Blood Urine Negative (Negative); Color Urine Light Yellow (Yellow); Glucose Urine UA 1+ (Negative); Ketones Urine Negative (Negative); Leukocyte Esterase Ur Negative (Negative); Nitrate Urine Negative (Negative); Protein Urine Negative (Negative); Specific Grav Ur 1.025 (1.010-1.020); Urobilinogen Urine 0.2 mg/dL (0.2-1.0)
[2023-10-20 13:03] LABS: Hemoglobin A1C 6.5 % (<5.7)
[2023-10-20 13:11] LABS: Add Urine Microscopic? YES; Bacteria Urine Rare /hpf; RBC Urine None seen /hpf (0-2); WBC Urine None seen /hpf (0-3)
[2023-10-20 13:46] LABS: Alanine Aminotransferase 24 U/L (16-63); Albumin Level 3.8 g/dL (3.4-5.0); Alkaline Phosphatase 77 U/L (46-116); Anion Gap 10 mmol/L (8-16); Aspartate Amino Transferase 15 U/L (15-37); Bilirubin,Total 0.8 mg/dL (0.00-1.00); Blood Urea Nitrogen 22 mg/dL (7-18); Calcium 8.8 mg/dL (8.5-10.1); Carbon Dioxide 28 mmol/L (21-32); Chloride 103 mmol/L (98-108); Cholesterol 174 mg/dL (0-200); Creatine Kinase 147 U/L (39-308); Estimated Glomerular Filt Rate > 60; Ferritin 43 ng/mL (26-388); Glucose 157 mg/dL (70-99); HDL Direct 75 mg/dL (40-60); Iron 74 ug/dL (65-175); LDL Cholesterol Calculated 90 mg/dL (<130); Osmolality Calculated 298 mOsm/kg (285-295); Potassium 4.4 mmol/L (3.5-5.1); Prostate Specific Antigen 2.6 ng/mL (< OR = 4.0); Sodium 141 mmol/L (136-145); Total Protein 6.4 g/dL (6.4-8.2); Triglycerides 46 mg/dL (0-150)
== END 2023-10-20 12:33 | disposition home or self-care (01) ==
LOC: CHSLAB 12:37
PROVIDERS: PCP Internal Medicine; Visit Provider Internal Medicine
DX: E11.9 Type 2 diabetes mellitus without complications (principal); I10 Essential (primary) hypertension; E78.2 Mixed hyperlipidemia; D64.9 Anemia, unspecified; Z12.5 Encounter for screening for malignant neoplasm of prostate
CPT/HCPCS: 36415; 80053; 80061; 81001; 82550; 82728; 83036; 83540; 84153; 85025; 85046; G0103

== ENCOUNTER 2023-12-06 01:51 | Day surgery (SDC) | payer MEDICARE, MEDICAID, SELFPAY ==
[2023-11-01 09:51] VITALS: BMI 26.1
[2023-12-06 07:27] VITALS: BP 129/61; PULSE 76; RESP 16; TEMP 36.1; O2SAT 100
[2023-12-06] MEDS: LACTATED RINGERS 1,000 ML 150 ML IV CONT (07:40)
[2023-12-06 07:41] LABS: Glucose Point of Care 118 mg/dl (65-105)
--- NOTE | 2023-12-06 08:06 | PM.IMHP ---
H&P: HPI History of Present Illness Date/Time: 12/06/23 08:06 Chief Complaint: History of colon cancer Narrative: This is a 68-year-old man who presents for colonoscopy. His last colonoscopy was about 5 years ago. He has a history of sigmoid colon cancer and underwent sigmoidectomy in 2015. He denies any hematochezia or melena. Review of Systems Review of Systems: All systems reviewed & are unremarkable except as noted in HPI and below Constitutional: Constitutional: Denies chills, Denies fever(s), Denies headache(s) and Denies weight loss Eyes: Eyes: Denies change in vision ENT: Denies dizziness, Denies headache(s), Denies neck mass and Denies throat swelling Cardiovascular: Cardiovascular: Denies chest pain, Denies lightheadedness and Denies dyspnea Respiratory: Respiratory: Denies cough, Denies dyspnea and Denies wheezing Gastrointestinal: Gastrointestinal: Denies abdominal pain, Denies change in bowel habits, Denies nausea and Denies vomiting Genitourinary: Genitourinary: Denies hematuria and Denies dysuria Musculoskeletal: Musculoskeletal: Reports as per HPI Integumentary/Breasts: Skin/Breast: Reports as per HPI Neurologic: Denies dizziness and Denies headache(s) Allergic/Immunologic: Allergic/Immunologic: Denies throat swelling and Denies wheezing PMFSH Social History Social History Smoking status: Never smoker Alcohol intake: current Drinks per week: 12 Alcohol use details: BEER PLUS COUPLE SHOTS 3-4 NIGHTS Substance use: never Substance use type: does not use Living arrangements: with family Spiritual care concerns: No Meds Home Medications and Allergies Home Medications Medication Instructions Recorded Confirmed Type aspirin 81 mg chewable tablet 81 mg PO DAILY 11/01/23 12/06/23 History glimepiride 4 mg tablet 8 mg PO DAILY 11/01/23 12/06/23 History hydroxyzine HCl 50 mg tablet 50 mg PO BID 11/01/23 12/06/23 History losartan 50 mg tablet 50 mg PO DAILY 11/01/23 12/06/23 History lovastatin 40 mg tablet,extended 40 mg PO HS 11/01/23 12/06/23 History release 24 hr mecobalamin (vitamin B12) 2,500 2,500 mcg PO DAILY 11/01/23 12/06/23 History mcg chewable tablet metformin 500 mg tablet,extended 500 mg PO BID 11/01/23 12/06/23 History release 24 hr [id number] comb 40 2 cap PO DAILY 11/01/23 12/06/23 History mg-17 mcg-10 mg-63 mg-33mg capsule (Urinozinc Prostate Formula) pioglitazone 45 mg tablet 45 mg PO DAILY 11/01/23 12/06/23 History potassium 99 mg tablet 198 mg PO BID 11/01/23 12/06/23 History Allergies Allergy/AdvReac Type Severity Reaction Status Date / Time No Known Allergies Allergy Unknown Verified 12/06/23 07:22 Vital Signs Vital Signs - 24 hr 12/06/23 07:27 Temperature 36.1 C L Pulse Rate 76 Respiratory Rate 16 Blood Pressure 129/61 Pulse Oximetry 100 Oxygen Delivery Room Air Exam Const: General: no acute distress and alert Orientation/consciousness: patient oriented x3 HENMT: Head: normocephalic and atraumatic Ears: hearing grossly normal bilaterally Face/Nose/Sinus: Normal nares present Mouth: Yes Normal oral and palatal mucosa present Eyes: Periorbital: periorbital findings normal Sclera: sclerae normal EOM: EOMs intact bilaterally Neck: Neck: normal visual inspection, no lymphadenopathy and trachea midline Chest: Chest palpation & inspection: normal inspection of the chest Resp: Effort & Inspection: normal respiratory effort Auscultation: clear to auscultation bilaterally Cardio: Jugular venous distension: no JVD Rate: regular rate Rhythm: regular rhythm Heart sounds: S1 normal heart sound present and S2 normal heart sound present Peripheral pulses: Peripheral pulses 2+ throughout GI: Inspection: normal to inspection GI Palp: Yes Soft to palpation, No Tenderness to palpation present (GI), No Guarding due to palpation present (GI) and No Rebound tenderness present Percussion: Yes normal to p
--- NOTE | 2023-12-06 08:19 | P.PNAN_ITS ---
Anes - Initial Pre Proc Eval Procedure: Operation Date: 12/06/23 08:30 Proposed Procedures p Screening Colonoscopy - Mohan Lyons DO Date/Time: 12/06/23 08:19 Surgeon: Mohan Lyons DO Pre Op Diagnosis: History of polyps Patient Data Age: 68 Gender: M Height: 1.8 m Weight: 85.3 kg Last Vital Signs Temp 97.0 F L 12/06/23 07:27 Pulse 76 12/06/23 07:27 Resp 16 12/06/23 07:27 BP 129/61 12/06/23 07:27 Pulse Ox 100 12/06/23 07:27 O2 Del Method Room Air 12/06/23 07:27 Allergies Allergy/AdvReac Type Severity Reaction Status Date / Time No Known Allergies Allergy Unknown Verified 12/06/23 07:22 Home Medications Medication Instructions Recorded Confirmed Type aspirin 81 mg chewable tablet 81 mg PO DAILY 11/01/23 12/06/23 History glimepiride 4 mg tablet 8 mg PO DAILY 11/01/23 12/06/23 History hydroxyzine HCl 50 mg tablet 50 mg PO BID 11/01/23 12/06/23 History losartan 50 mg tablet 50 mg PO DAILY 11/01/23 12/06/23 History lovastatin 40 mg tablet,extended 40 mg PO HS 11/01/23 12/06/23 History release 24 hr mecobalamin (vitamin B12) 2,500 2,500 mcg PO DAILY 11/01/23 12/06/23 History mcg chewable tablet metformin 500 mg tablet,extended 500 mg PO BID 11/01/23 12/06/23 History release 24 hr [id number] comb 40 2 cap PO DAILY 11/01/23 12/06/23 History mg-17 mcg-10 mg-63 mg-33mg capsule (Urinozinc Prostate Formula) pioglitazone 45 mg tablet 45 mg PO DAILY 11/01/23 12/06/23 History potassium 99 mg tablet 198 mg PO BID 11/01/23 12/06/23 History Laboratory Tests 12/06/23 07:39 POC Capillary Glucose 118 H mg/dl (65-105) Patient hx anesthesia problems: none Family hx anesthesia problems: none Results Review: All pre-operative results and documents have been reviewed as part of the pre- operative evaluation. PMFSH Social History Social History Smoking status: Never smoker Alcohol intake: current Drinks per week: 12 Alcohol use details: BEER PLUS COUPLE SHOTS 3-4 NIGHTS Substance use: never Substance use type: does not use Living arrangements: with family Spiritual care concerns: No Anes - Eval Final PreProcedure Day of Procedure 12/06/23 08:19 Patient weight: normal Heart: regular rate and rhythm Lungs: clear to auscultation Airway: Mallampati scale class II Neurological: alert and oriented Last oral intake: >/= 8 hours ASA classification: III Emergent: no Anesthetic plan: proceed Anesthesia type and monitoring: general GIVS and standard monitoring Results Review: All pre-operative results and documents have been reviewed as part of the pre- operative evaluation. Informed Consent: The patient's anesthetic plan and its attendant risks and benefits were discussed with the patient/family/POA. Questions were solicited and answers provided to the satisfaction of the patient/family/POA.
[2023-12-06 08:56] VITALS: BP 120/71; PULSE 81; RESP 24; O2SAT 100
[2023-12-06 09:06] VITALS: BP 130/78; PULSE 79; RESP 19; O2SAT 100
[2023-12-06 09:16] VITALS: BP 142/82; PULSE 75; RESP 15; O2SAT 100
== END 2023-12-06 09:27 | disposition home or self-care (01) ==
PROVIDERS: PCP Internal Medicine; Visit Provider Surgery
PROC: 0DJD8ZZ Inspection of Lower Intestinal Tract, Via Natural or Artificial Opening Endoscopic (ICD-10-PCS; CPT 45378; principal; 2023-12-06 08:30)
DX: Z08 Encounter for follow-up examination after completed treatment for malignant neoplasm (principal); Z85.038 Personal history of other malignant neoplasm of large intestine; Z90.49 Acquired absence of other specified parts of digestive tract; Z79.84 Long term (current) use of oral hypoglycemic drugs; Z79.82 Long term (current) use of aspirin
CPT/HCPCS: 45378; 82948; J2704; J7120

== ENCOUNTER 2024-05-17 10:43 | Outpatient (CLI) | payer MEDICARE, MEDICAID, SELFPAY ==
--- NOTE | ~2024-05-17 | XR_ITS ---
3 VIEWS LUMBAR SPINE Ordering provider: Mae Ugalde MD History: . Chronic Low Back Pain . Comparison: None. FINDINGS: VERTEBRAL BODIES: No visible fracture or subluxation. Degenerative changes of the spine. DISK SPACES: Narrowing of the disc L2-L3, L3-L4, L4-L5 and L5-S1. Multilevel facet joint disease. SOFT TISSUES: Vascular calcification the aorta. IMPRESSION: No acute osseous abnormality lumbar spine. Multilevel degenerative disc disease. Reviewed, dictated and finalized at location A.
== END 2024-05-17 10:44 | disposition home or self-care (01) ==
PROVIDERS: PCP Internal Medicine; Visit Provider Internal Medicine
DX: M54.50 Low back pain, unspecified (principal); M51.36 Other intervertebral disc degeneration, lumbar region
CPT/HCPCS: 72100

== ENCOUNTER 2024-11-07 14:13 | Outpatient (CLI) | payer MEDICARE, MEDICAID, SELFPAY ==
[2024-11-07 14:38] LABS: Basophils Absolute Auto 0.06 K/mm3 (0.00-0.10); Basophils Percent Auto 0.8 % (0.0-1.0); Eosinophils Absolute Auto 0.39 K/mm3 (0.02-0.50); Eosinophils Percent Auto 5.4 % (1.0-6.0); Hematocrit 37.9 % (37.0-46.0); Immature Granulocyte Absolute 0.05 K/mm3 (0.00-0.00); Immature Granulocyte Percent A 0.7 % (0.0-0.0); Lymphocytes Absolute Auto 1.52 K/mm3 (1.10-4.50); Lymphocytes Percent Auto 20.9 % (18.0-42.0); Mean Corpuscular HGB Conc 31.7 g/dL (32-36); Mean Corpuscular Hemoglobin 28.8 pg (27.0-31.0); Mean Corpuscular Volume 90.9 fL (78.0-102.0); Mean Platelet Volume 9.1 fl (8.7-11.0); Monocytes Absolute Auto 0.76 K/mm3 (0.10-0.90); Monocytes Percent Auto 10.5 % (2.0-11.0); Neutrophils Absolute Auto 4.48 K/mm3 (1.70-7.20); Neutrophils Percent Auto 61.7 % (50.0-70.0); Platelet Count Result 185 K/mm3 (150-420); Red Blood Count 4.17 M/mm3 (4.70-6.10); Red Cell Distribution Width 15.2 % (11.6-14.4); White Blood Count 7.3 K/mm3 (4.8-10.8)
[2024-11-07 14:39] LABS: Add Urine Microscopic? NO; Appearance Urine Clear (Clear); Bilirubin Urine Negative (Negative); Blood Urine Trace-intact (Negative); Color Urine Light Yellow (Yellow); Glucose Urine UA Trace (Negative); Ketones Urine Negative (Negative); Leukocyte Esterase Ur Negative (Negative); Nitrate Urine Negative (Negative); Protein Urine Negative (Negative); Specific Grav Ur 1.025 (1.010-1.020); Urobilinogen Urine 0.2 mg/dL (0.2-1.0)
[2024-11-07 14:47] LABS: Hemoglobin A1C 6.3 % (<5.7)
[2024-11-07 14:50] LABS: Creatinine Urine 125.31 mg/dL (40-278); MALB Creatinine Ratio 10.3 mg/g (0-30); Microalbumin Urine Random < 13.0 mg/L
[2024-11-07 15:35] LABS: Alanine Aminotransferase 24 U/L (16-63); Albumin Level 3.8 g/dL (3.4-5.0); Alkaline Phosphatase 111 U/L (46-116); Anion Gap 10 mmol/L (4-12); Aspartate Amino Transferase 12 U/L (15-37); Blood Urea Nitrogen 21 mg/dL (7-18); Calcium 9.1 mg/dL (8.5-10.1); Carbon Dioxide 29 mmol/L (21-32); Chloride 104 mmol/L (98-108); Creatine Kinase 87 U/L (39-308); Estimated Glomerular Filt Rate 59; Free T4 Free Thyroxine 0.94 ng/dL (0.76-1.46); Glucose 151 mg/dL (70-99); Osmolality Calculated 302 mOsm/kg (285-295); Potassium 4.5 mmol/L (3.5-5.1); Prostate Specific Antigen 3.2 ng/mL (< OR = 4.0); Sodium 143 mmol/L (136-145); Thyroid Stimulating Hormone 2.69 uIU/mL (0.36-3.74); Total Protein 6.7 g/dL (6.4-8.2)
[2024-11-07 15:38] LABS: Free T3 2.45 pg/mL (2.18-3.98)
--- OUTSIDE RECORDS SUMMARY | 2024-11-07 15:52 | XMS_ITS | Clinical Summary ---
Author Organization [facility] Address [address] [place] [id number] Care Team Providers Care Stock Handler Name Role Phone Unavailable Primary Care Provider Unavailabl e Social History Tobacco Use Types Packs/Day Years Used Date Smoking Tobacco: Never Assessed Sex and Gender Information Value Date Recorded Sex Assigned at Not on file Legal Sex Male 5:13 PM CDT Gender Identity Not on file Sexual Orientation Not on file Last Filed Vital Signs Vital Sign Reading Time Taken Comments Blood Pressure 110/70 11/11/2015 10:20 AM CDT Pulse 98 11/11/2015 10:20 AM CDT Temperature - - Respiratory Rate - - Oxygen Saturation - - Inhaled Oxygen Concentration - - Weight 87.5 kg (193 lb) 11/11/2015 10:20 AM CDT Height 182.9 cm (6') 11/11/2015 10:20 AM CDT Body Mass Index 26.18 11/11/2015 10:20 AM CDT Plan of Treatment Health Maintenance Due Date Last Done Comments Hepatitis C 1971 DTaP, Tdap and Td Vaccines ( 1 - Tdap) 01/19/1972 Zoster Vaccines (1 of 2) 2003 Pneumococcal Vaccine: 65+ Ye ars (1 of 1 - PCV) 2018 COVID-19 Vaccine ( - 2023-2 5 season) 2024 Influenza Adult (#1) 2024 Colorectal Cancer Screening Colonoscopy (10 Years) 11/03/2025 11/04/2015 RSV Immunization or 60+ Years (1 - 1-dose 75+ series) 01/19/2028 Meningococcal B Vaccine Aged Out No l onger eligible based on patient's age to complete this topic Meningococcal Vaccine Aged Out No inés oliver eligible based on patient's age to complete this topic RSV Immunizations Under 20 Months Aged Out No longer eligible based on patient's age to complete this topic Procedures Procedure Name Priority Date/Time Associated Diagnosis Comments COLONOSCOPY Routine 11/04/2015 12:00 AM CDT from Last 3 Months or Most Recently Relevant to Health Maintenance Results * Colonoscopy (11/04/2015 12:00 AM CDT) 11/04/2015 11/04/2015 Narrative [facility] TO EPIC CONVERSION - 11/04/2015 12:00 AM CDT Documented hx of procedure Procedure Note , Generic ConversionMD - 06/25/2018 Documented hx of procedure us Generic Conversion Md [facility] PROCEDURE ORDERABLES Final Result [facility] TO EPIC CONVERSION from Last 3 Months or Most Recently Relevant to Health Maintenance
[2024-11-07 19:24] LABS: Cholesterol 182 mg/dL (0-200); HDL Direct 94 mg/dL (40-60); LDL Cholesterol Calculated 77 mg/dL (<130); Triglycerides 54 mg/dL (0-150)
== END 2024-11-07 14:14 | disposition home or self-care (01) ==
LOC: CHSLAB 14:15
PROVIDERS: PCP Internal Medicine; Visit Provider Internal Medicine
DX: E11.9 Type 2 diabetes mellitus without complications (principal); I10 Essential (primary) hypertension; E78.2 Mixed hyperlipidemia; R21 Rash and other nonspecific skin eruption; Z12.5 Encounter for screening for malignant neoplasm of prostate
CPT/HCPCS: 36415; 80053; 80061; 81003; 82043; 82550; 83036; 84153; 84439; 84443; 84481; 85025; G0103

== ENCOUNTER 2024-12-20 15:46 | Outpatient (CLI) | payer MEDICARE, MEDICAID, SELFPAY ==
--- NOTE | ~2024-12-20 | XR_ITS ---
EXAMINATION: XR foot RT min 3V DATE: 12/20/2024 16:06 INDICATION: Right foot pain at the base of the fifth metatarsal TECHNIQUE: Dorsoplantar, two oblique and lateral views of the right foot were obtained. COMPARISON: None. FINDINGS: Alignment is normal. No fracture. Small corticated ossicle near the tip of the lateral malleolus, lik racquel sequela of old trauma. Mild polyarticular osteoarthritis at the first metatarsophalangeal joint a nd at a few of the tarsal metatarsal and interphalangeal joints. No cortical erosions or periosteal r eaction. Moderate-sized plantar calcaneal spur. Soft tissues are unremarkable. IMPRESSION: 1. 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 No acute osseous abnormality. Reviewed, dictated and finalized at location B. IMPRESSION: 1. 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 No acute os seous abnormality.
--- OUTSIDE RECORDS SUMMARY | 2024-12-20 15:53 | XMS_ITS | Clinical Summary ---
Author Organization [facility] Address [address] [place] [id number] Care Team Providers Care Termite Inspector Name Role Phone Unavailable Primary Care Provider [...] Td Vaccines ( 1 - Tdap) 01/19/1972 Pneumococcal Vaccine: 50+ Ye ars (1 of 1 - PCV) 2003 Zoster Vaccines (1 of 2) 2003 COVID-19 Vaccine ( - 2023-2 5 season) 2024 Colorectal Cancer Screening Colonoscopy (10 Years) [...]
== END 2024-12-20 15:47 | disposition home or self-care (01) ==
PROVIDERS: PCP Internal Medicine; Visit Provider Podiatrist Foot & Ankle Surgery
DX: S99.921A Unspecified injury of right foot, initial encounter (principal); M54.50 Low back pain, unspecified; M19.071 Primary osteoarthritis, right ankle and foot
CPT/HCPCS: 73630

== ENCOUNTER 2025-01-31 14:14 | Outpatient (CLI) | payer MEDICARE, MEDICAID, SELFPAY ==
[2025-01-31 14:27] LABS: Immature Reticulocyte Fraction 21.9 % (2.0-16.52); Reticulocyte Hemoglobin Conten 32.9 pg (28.0-35.0); Reticulocyte Percent 1.46 % (0.50-1.50); Reticulocytes Absolute 0.06 M/mm3 (0.02-0.10)
--- OUTSIDE RECORDS SUMMARY | 2025-01-31 14:52 | XMS_ITS | Patient Health Record ---
Author Organization [facility] Address [address] [place], [place] [address] Care Team Providers Care Principal Systems Architect Name Role Phone JEANNIE BARRAZA Unavailable [phone] Mariam Ugalde Unavailable Unavailable Allergies No Known Allergies Reason For Referral No Information Medications Medication SIG (Take, Route, Frequency, Duration) Notes Start Date End Date Status Amoxicillin-Pot Clavulanate 875-125 MG TAKE 1 TABLET BY MOUTH EVERY 12 HOURS Oral for 10 Days Active Encounters Encounter Location Date Provider Diagnosis [address] [id number] 10/11/2024 JEANNIE SNOOK Non-pressure chronic ulcer of other part of left foot with unspecified severity L97.529 and Left foot pain M79.[address] [id number] 10/25/2024 JEANNIE SNOOK Non-pressure chronic ulcer of other part of left foot with unspecified severity L97.529 and Left foot pain M79.[address] [id number] 11/08/2024 JEANNIE SNOOK Left foot pain M79.6 72 ; Non-pressure chronic ulcer of other part of left foot limited to breakdown of skin L97.521 and Atherosclerosis of [place] arteries of extremities with intermittent claudication, bilateral legs I70.[address] [id number] 12/20/2024 JEANNIE SNOOK Left foot pain M79.6 72 ; Non-pressure chronic ulcer of other part of left foot limited to breakdown of skin L97.521 ; Atherosclerosis of [place] arteries of extremities with intermittent claudication, bilateral legs I70.213 ; Peroneal tendinitis, right leg M76.71 and Strain of unspecified muscle and tendon at ankle and foot level, right foot, initial encounter S96.911A Assessments Encounter Date Diagnosis (ICD Code) Assessment Notes Treatment Notes Treatment Clinical Notes Section Notes 10/11/2024 Non-pressure chronic ulcer of other part of left foot with unspecified severity (ICD-10 - L97.529) Ulcer Debridement: Using a 15 blade, the ulcer was sharply debrided down to bleeding tissue. The nonviable tissue was sharply debrided down to the layer of subcutaneous tissue. A dry sterile dressing was applied. Ulcer Plan of Care: The treatment goals are closure of the ulceration within an appropriate time frame. This will require regular debridements every 2 weeks until skin closure has been met. The patient will come in sooner than 2 weeks if the wound develops any signs of infection or deteriorates. The plan of care will be reviewed every month. If there is no change in the size of the wound, we will re evaluate debridement schedule, topical medications being used, as well as modify techniques for offloading the wound. [employer] Grade 0: Pre-ulcerative Lesion, healed ulcers, presence of bone deformity Grade 1: Superficial Ulcer without subcutaneous tissue involvement Grade 2: Penetration through the subcutaneous tissue (may expose bone, tendon, ligament or joint capsule) Grade 3: Osteitis, abscess or osteomyelitis Grade 4: Gangrene of the foot. Based on clinical findings, the patient has the following grade ulceration: 1 10/11/2024 Left foot pain (ICD-10 - M79.672) 10/25/2024 Non-pressure chronic ulcer of other part of left foot with unspecified severity (ICD-10 - L97.529) Ulcer Debridement: Using a 15 blade, the ulcer was sharply debrided down to bleeding tissue. The nonviable tissue was sharply debrided down to the layer of subcutaneous tissue. A dry sterile dressing was applied. Ulcer Plan of Care: The treatment goals are closure of the ulceration within an appropriate time frame. This will require regular debridements every 2 weeks until skin closure has been met. The patient will come in sooner than 2 weeks if the wound develops any signs of infection or deteriorates. The plan of care will be reviewed every month. If there is no change in the size of the wound, we will re evaluate debridement schedule, topical medications being used, as well as modify techniques for offloading the wound. [employer] Grade 0: Pre-ulcerative Lesion, healed ulcers, presence of bone deformity Grade 1: Superficial Ulcer without subcutaneous tissue involvement Grade 2: Penetration through the subcutaneous tissue (may expose bone, tendon, ligament or joint capsule) Grade 3: Osteitis, abscess or osteomyelitis Grade 4: Gangrene of the foot. Based on clinical findings, the patient has the following grade ulceration: 1 10/25/2024 Left foot pain (ICD-10 - M79.672) 11/08/2024 Non-pressure chronic ulcer of other part of left foot limited to breakdown of skin (ICD-10 - L97.521) Ulcer Resolved: The nonviable tissue from the uler site was debrided down to normal appearing tissue. Advised patient to monitor this area for recurrence. Patient may discontinue local wound care. Ulcer Plan of Care: The treatment goals are closure of the ulceration within an appropriate time frame. This will require regular debridements every 2 weeks until skin closure has been met. The patient will come in sooner than 2 weeks if the wound develops any signs of infection or deteriorates. The plan of care will be reviewed every month. If there is no change in the size of the wound, we will re evaluate debridement schedule, topical medications being used, as well as modify techniques for offloading the wound. [employer] Grade 0: Pre-ulcerative Lesion, healed ulcers, presence of bone deformity Grade 1: Superficial Ulcer without subcutaneous tissue involvement Grade 2: Penetration through the subcutaneous tissue (may expose bone, tendon, ligament or joint capsule) Grade 3: Osteitis, abscess or osteomyelitis Grade 4: Gangrene of the foot. Based on clinical findings, the patient has the following grade ulceration: 0 Emollient: Recommend that the patient use an emollient such as qjdg-gjd-ltszeir Eucerin cream, Vanicream, or other lotion to the affected area. 11/08/2024 Left foot pain (ICD-10 - M79.672) 12/20/2024 Non-pressure chronic ulcer of other part of left foot limited to breakdown of skin (ICD-10 - L97.521) Ulcer Resolved: The nonviable tissue from the uler site was debrided down to normal appearing tissue. Advised patient to monitor this area for recurrence. Patient may discontinue local wound care. Emollient: Recommend that the patient use an emollient such as pdux-vvl-pngmncm Eucerin cream, Vanicream, or other lotion to the affected area. 12/20/2024 Left foot pain (ICD-10 - M79.672) 12/20/2024 Atherosclerosis of [place] arteries of extremities with intermittent claudication, bilateral legs (ICD-10 - I70.213) 11/08/2024 Atherosclerosis of [place] arteries of extremities with intermittent claudication, bilateral legs (ICD-10 - I70.213) 12/20/2024 Peroneal tendinitis, right leg (ICD-10 - M76.71) Peroneal Tendonitis: I discussed anti-inflammatory treatment options and various means of immobilization with the patient. I educated the patient on icing and stretching, supportive shoegear, and the use of orthotic devices and bracing. Order: Xrays 3 views of the right foot from [facility]; r/o 5th metatarsal avulsion fracture. Addendum: [facility] called @ 16:38: Xrays show no evidence of fracture 12/20/2024 Strain of unspecified muscle and tendon at ankle and foot level, right foot, initial encounter (ICD-10 - S96.911A) 10/11/2024 Other Shoe Recommendation: Advised patient on appropriate shoe gear for protection, healing and good foot health. 11/08/2024 Other Plan Of Treatment Next Appt Details Provider Name:EZE SAMAYOA, 02/28/2025 02:50:00 PM, [address] [place] [address], [id number], Insurance Providers Payer Name Payer Address Payer Phone Subscriber Number Group Number Insured Name Patient Relationship to Insured Coverage Start Date Coverage End Date [facility] [address] [address] [place], [place] [id number] Greg Aguayo am Self - patient is the insured
[2025-01-31 14:57] LABS: Iron 114 ug/dL (49-181)
[2025-01-31 15:48] LABS: Vitamin B12 > 1000.0 pg/mL (239-931)
[2025-02-04 14:33] LABS: Red Blood Cell Folate 544 ng/mL RBC (>280)
== END 2025-01-31 14:15 | disposition home or self-care (01) ==
LOC: CHSLAB 14:15
PROVIDERS: PCP Internal Medicine; Visit Provider Internal Medicine
DX: D64.9 Anemia, unspecified (principal)
CPT/HCPCS: 36415; 82607; 82728; 82747; 83540; 85046

== ENCOUNTER 2025-05-15 14:13 | Outpatient (CLI) | payer MEDICARE, SELFPAY ==
--- OUTSIDE RECORDS SUMMARY | 2025-02-28 09:50 | XMS_ITS ---
Author Organization [facility] Address [address] [place], [place] [address] Care Team Providers Care Visualizer Name Role Phone JEANNIE BARRAZA Unavailable [phone] Mariam Ugalde Unavailable Unavailable EZE GARCIAS Unavailable [phone] REASON FOR VISIT *General care Encounters Encounter Location Date Provider Diagnosis [address] [id number] 02/28/2025 EZE GARCIAS Non-pressure chronic ulcer of other part of left foot limited to breakdown of skin L97.521 ; Left foot pain M79.672 ; Atherosclerosis of [place] arteries of extremities with intermittent claudication, bilateral [...] the patient use an emollient such as wrqs-wdw-ieknkgo Eucerin cream, Vanicream, or other lotion to the affected area. 02/28/2025 Left foot pain (ICD-10 - M79.672) 02/28/2025 Atherosclerosis of [place] arteries of extremities with intermittent claudication, bilateral legs (ICD-10 - I70.213) 02/28/2025 Peroneal tendinitis, right leg (ICD-10 - M76.71) Peroneal Tendonitis: I discussed anti-inflammatory treatment options and various means of immobilization with the patient. I educated the patient on icing and stretching, supportive shoegear, and the use of orthotic devices and bracing. Order: Xrays 3 views of the right foot from [facility]; r/o 5th metatarsal avulsion fracture. Addendum: [facility] called @ 16:38: Xrays show no evidence [...] the patient use an emollient such as tvjt-ibx-lbctwkx Eucerin cream, Vanicream, or other lotion to the affected area. Peroneal tendinitis, right leg Peroneal Tendonitis: I discussed anti-inflammatory treatment options and various means of immobilization with the patient. I educated the patient on icing and stretching, supportive shoegear, and the use of orthotic devices and bracing. Order: Xrays 3 views of the right foot from [facility]; r/o 5th metatarsal avulsion fracture. Addendum: [facility] called @ 16:38: Xrays show no evidence of fracture Next Appt Details Follow Up: 9 weeks and PRN, Reason: 9 weeks: At risk foot care, ulcer check. We will contact patient if the xray shows a fracture Provider Name:EZE SAMAYOA, 07/11/2025 01:10:00 PM, [address] [place] [address], [id number], Progress Notes * Greg CHRISTIANSONDOB:1954 (70 yo M)Acc No.[id number]:02/28/2025 Patient: Greg STEWARD Provider: Tootie GARCIAS :1955 A ge:70 Y S ex:Male Date:02/28/2025 [id number] Subjective: * Chief Complaints: * 1 . *General care. * ROS: G eneral / Constitutional: Patient denies c hills, fever, weakness, night sweats. M usculoskeletal: Patient denies c hildhood foot problems, weakness. ? P eripheral Vascular: Patient denies u lceration of feet, cold extremities. ? S kin: Patient denies d iscoloration. P atient complains of?blister, wounds. N eurologic: Patient denies b alance difficulty, confusion, difficulty speaking, dizziness. * Medical History: Objective: * Vitals: * Examination: C onstitutional: Constitutional T he [...] - M79.672 3 . A therosclerosis of [place] arteries of extremities with intermittent claudication, bilateral [...] 3 views of the right foot from [facility]; r/o 5th metatarsal avulsion fracture. Addendum: [facility] called @ 16:38: Xrays show no evidence of fracture * Follow Up: 9 weeks and PRN (Reason: 9 weeks: At risk foot care, ulcer check. We will contact patient if the xray shows a fracture) * Billing Information: * Visit Code: * Procedure Codes: * Electronic signature of SHEYLA GARCIAS DPM on 05/15/2025 at 02:17 PM CDT Sign off status: Pending * Provider: Tootie GARCIAS Date: 02/28/2025 Generated for Karen Troncoso on: 0 05/15/2025 02:17 PM CDT History and Physical Notes * Examination Category [...]
--- OUTSIDE RECORDS SUMMARY | 2025-03-07 08:20 | XMS_ITS ---
Author Organization [facility] Address [address] [place], [place] [id number] Care Team Providers Care Mine Technician Name Role Phone JEANNIE BARRAZA Unavailable [phone] Mariam Ugalde Unavailable Unavailable EZE GARCIAS Unavailable [phone] REASON FOR VISIT *Wound check Medications Medication SIG (Take, Route, Frequency, Duration) Notes Start Date End Date Status Amoxicillin-Pot Clavulanate 875-125 MG TAKE 1 TABLET BY MOUTH EVERY 12 HOURS Oral; Duration: 10 Days Active Social History Tobacco Use: Social History Observation Description Date Details (start date - stop date) Unknown if ever smoked NA - NA Tobacco Control (Standard) Question Answer Notes Tobacco use: Unknown if ever smoked Encounters Encounter Location Date Provider Diagnosis [address] [phone] 03/07/2025 EZE GARCIAS Non-pressure chronic ulcer of other part of left foot limited to breakdown of skin L97.521 ; Left foot pain M79.672 ; Atherosclerosis of [place] arteries of extremities with intermittent claudication, bilateral [...] the patient use an emollient such as wwxn-ypr-wsfqeon Eucerin cream, Vanicream, or other lotion to the affected area. 03/07/2025 Left foot pain (ICD-10 - M79.672) 03/07/2025 Atherosclerosis of [place] arteries of extremities with intermittent claudication, bilateral legs (ICD-10 - I70.213) 03/07/2025 Peroneal tendinitis, right leg (ICD-10 - M76.71) Peroneal Tendonitis: I discussed anti-inflammatory treatment options and various means of immobilization with the patient. I educated the patient on icing and stretching, supportive shoegear, and the use of orthotic devices and bracing. Order: Xrays 3 views of the right foot from [facility]; r/o 5th metatarsal avulsion fracture. Addendum: [facility] called @ 16:38: Xrays show no evidence of fracture 03/07/2025 [...] the patient use an emollient such as bdop-agh-fkjvktn Eucerin cream, Vanicream, or other lotion to the affected area. Peroneal tendinitis, right leg Peroneal Tendonitis: I discussed anti-inflammatory treatment options and various means of immobilization with the patient. I educated the patient on icing and stretching, supportive shoegear, and the use of orthotic devices and bracing. Order: Xrays 3 views of the right foot from [facility]; r/o 5th metatarsal avulsion fracture. Addendum: [facility] called @ 16:38: Xrays show no evidence of fracture Next Appt Details Provider Name:EZE SAMAYOA, 07/11/2025 01:10:00 PM, [address] [place] [address], [id number], Progress Notes * Niyah CHRISTIANSON:1954 (70 yo M)Acc No.[id number]:03/07/2025 Patient: Greg STEWARD Provider: Tootie GARCIAS :1955 A ge:70 Y S ex:Male Date:03/07/2025 [id number] Subjective: * Chief Complaints: * 1 . *Wound check. * HPI: H PI: Follow Up Visit P atient presents for follow up visit for a wound on the lateral side of the left foot. The wound is looking good. Patient states that there is only slight pain in the center of the wound. , MA: [facility]. * ROS: G eneral / Constitutional: Patient denies c hills, fever, weakness, night sweats. M usculoskeletal: Patient denies c hildhood foot problems, weakness. ? P eripheral Vascular: Patient denies u lceration of feet, cold extremities. ? S kin: Patient denies d iscoloration. P atient complains of?blister, wounds. N eurologic: Patient denies b alance difficulty, confusion, difficulty speaking, dizziness. * Medical History: * Social History: T obacco Use: T obacco Control (Standard) T obacco use: U nknown if ever smoked. * Medications: T aking Amoxicillin-Pot Clavulanate 875-125 MG Tablet TAKE 1 TABLET BY MOUTH EVERY 12 HOURS Oral , Medication List reviewed and reconciled with the patient Objective: * Vitals: * Examination: C onstitutional: [...] - M79.672 3 . A therosclerosis of [place] arteries of extremities with intermittent claudication, bilateral legs - I70.213 & #160; 4 . P eroneal tendinitis, right leg - M76.71 5 . S train of unspecified muscle and tendon at ankle and foot level, right foot, initial encounter - S96.916O Plan: * Treatment: 2. P eroneal tendinitis, right leg Notes: Peroneal Tendonitis: I discussed anti-inflammatory treatment options and various means of immobilization with the patient. I educated the patient on icing and stretching, supportive shoegear, and the use of orthotic devices and bracing. Order: Xrays 3 views of the right foot from [facility]; r/o 5th metatarsal avulsion fracture. Addendum: [facility] called @ 16:38: Xrays show no evidence of fracture * Immunizations: Immunization record has been reviewed and updated. * Billing Information: * Visit Code: 19554 Office Visit, Est Pt., Level 3. * Procedure Codes: * Electronic signature of SHEYLA GARCIAS DPM on 05/15/2025 at 02:17 PM CDT Sign off status: Pending * Provider: Tootie GARCIAS Date: 03/07/2025 Generated for Karen guerrier/Ruma/Markus on: 05/15/2025 02:17 PM CDT History and Physical Notes * HPI (History of Present Illness) Category Sub-Category Detail Notes Category Not es HPI Follow Up Visit Patient presents for follow up visit for a wound on the lateral side of the left foot. The wound is looking good. Patient states that there is only slight pain in the center of the wound. , MA: [facility] Examination Category Sub-Category Detail Notes Category Not [...]
--- OUTSIDE RECORDS SUMMARY | 2025-05-09 08:10 | XMS_ITS ---
Author Organization [facility] Address [address] [place], [place] [address] Care Team Providers Care Game Preserve Manager Name Role Phone JEANNIE BARRAZA Unavailable [phone] Mariam Ugalde Unavailable Unavailable EZE GARCIAS Unavailable [phone] Allergies No Known Allergies REASON FOR VISIT *General care Medications Medication SIG (Take, Route, Frequency, Duration) Notes Start Date End Date Status Amoxicillin-Pot Clavulanate 875-125 MG TAKE 1 TABLET BY MOUTH EVERY 12 HOURS Oral; Duration: 10 Days Active Encounters Encounter Location Date Provider Diagnosis [address] [id number] 05/09/2025 EZE GARCIAS Non-pressure chronic ulcer of other part of left foot limited to breakdown of skin L97.521 ; Left foot pain M79.672 ; Atherosclerosis of [place] arteries of extremities with intermittent claudication, bilateral [...] the patient use an emollient such as cudq-fts-cfhffxg Eucerin cream, Vanicream, or other lotion to the affected area. 05/09/2025 Left foot pain (ICD-10 - M79.672) 05/09/2025 Atherosclerosis of [place] arteries of extremities with intermittent claudication, bilateral legs (ICD-10 - I70.213) 05/09/2025 Peroneal tendinitis, right leg (ICD-10 - M76.71) Peroneal Tendonitis: I discussed anti-inflammatory treatment options and various means of immobilization with the patient. I educated the patient on icing and stretching, supportive shoegear, and the use of orthotic devices and bracing. Order: Xrays 3 views of the right foot from [facility]; r/o 5th metatarsal avulsion fracture. Addendum: [facility] called @ 16:38: Xrays show [...] the patient use an emollient such as szwl-nrj-rtrtjoj Eucerin cream, Vanicream, or other lotion to the affected area. Peroneal tendinitis, right leg Peroneal Tendonitis: I discussed anti-inflammatory treatment options and various means of immobilization with the patient. I educated the patient on icing and stretching, supportive shoegear, and the use of orthotic devices and bracing. Order: Xrays 3 views of the right foot from [facility]; r/o 5th metatarsal avulsion fracture. Addendum: [facility] called @ 16:38: Xrays show no evidence of fracture Next Appt Details Follow Up: 9 weeks and PRN, Reason: 9 weeks: At risk foot care, ulcer check. We will contact patient if the xray shows a fracture Provider Name:EZE SAMAYOA, 07/11/2025 01:10:00 PM, [address] [place] [address], [id number], Progress Notes * Niyah CHRISTIANSON:1954 (70 yo M)Acc No.[id number]:05/09/2025 Patient: Greg STEWARD Provider: Tootie MATHEWDREW METZGERFORD :1955 A ge:70 Y S ex:Male Date:05/09/2025 Address:[address] [place], [place] [id number] Subjective: * Chief Complaints: * 1 . [...] - M79.672 3 . A therosclerosis of [place] arteries of extremities with intermittent claudication, bilateral legs - I70.213 & #160; 4 . P eroneal tendinitis, right leg - M76.71 5 . S train of unspecified muscle and tendon at ankle and foot level, right foot, initial encounter - S96.071A Plan: * Treatment: 2. P eroneal tendinitis, right leg Notes: Peroneal Tendonitis: I discussed anti-inflammatory treatment options and various means of immobilization with the patient. I educated the patient on icing and stretching, supportive shoegear, and the use of orthotic devices and bracing. Order: Xrays 3 views of the right foot from [facility]; r/o 5th metatarsal avulsion fracture. Addendum: [facility] called @ 16:38: Xrays show [...] Date: 05/09/2025 Generated for Karen guerrier/Ruma/Markus on: 05/15/2025 02:17 [...]
--- OUTSIDE RECORDS SUMMARY | 2025-05-15 14:17 | XMS_ITS | Patient Health Record ---
Author Organization [facility] Address [address] [place], [place] [id number] Care Team Providers Care Finisher Tailor Apprentice Name Role Phone JEANNIE BARRAZA Unavailable [phone] Mariam Ugalde Unavailable Unavailable EZE GARCIAS Unavailable [phone] Allergies No Known Allergies Reason For Referral [...] smoked Encounters Encounter Location Date Provider Diagnosis [address] [id number] 03/07/2025 EZE GARCIAS Non-pressure chronic ulcer of other part of left foot limited to breakdown of skin L97.521 ; Left foot pain M79.672 ; Atherosclerosis of [place] arteries of extremities with intermittent claudication, bilateral legs I70.213 ; Peroneal tendinitis, right leg M76.71 and Strain of unspecified muscle and tendon at ankle and foot level, right foot, initial encounter S96.911A Formerly [facility] [address] [place], [place] [id number] 05/09/2025 EZE GARCIAS Non-pressure chronic ulcer of other part of left foot limited to breakdown of skin L97.521 ; Left foot pain M79.672 ; Atherosclerosis of [place] arteries of extremities with intermittent claudication, bilateral legs I70.213 ; Peroneal tendinitis, right leg M76.71 and Strain of unspecified muscle and tendon at ankle and foot level, right foot, initial encounter S96.911A [address] [id number] 10/11/2024 JEANNIE SNOOK Non-pressure chronic ulcer of other part of left foot with unspecified severity L97.529 and Left foot pain M79.[address] [id number] 10/25/2024 JEANNIE SNOOK Non-pressure chronic ulcer of other part of left foot with unspecified severity L97.529 and Left foot pain M79.[address] [id number] 11/08/2024 JEANNIE SNOOK Left foot pain M79.6 72 ; Non-pressure chronic ulcer of other part of left foot limited to breakdown of skin L97.521 and Atherosclerosis of [place] arteries of extremities with intermittent claudication, bilateral legs I70.[address] [id number] 12/20/2024 JEANNIE SNOOK Left foot pain M79.6 72 ; Non-pressure chronic ulcer of other part of left foot limited to breakdown of skin L97.521 ; Atherosclerosis of [place] arteries of extremities with intermittent claudication, bilateral [...] the patient use an emollient such as rmet-sxl-eeiiqvg Eucerin cream, Vanicream, or other lotion to [...] the patient use an emollient such as qtdk-ijn-kjnquvn Eucerin cream, Vanicream, or other lotion to the affected area. 12/20/2024 Left foot pain (ICD-10 - M79.672) 03/07/2025 Non-pressure chronic ulcer of other part of left foot limited to breakdown of skin (ICD-10 - L97.521) Ulcer Resolved: The nonviable tissue from the uler site was debrided down to normal appearing tissue. Advised patient to monitor this area for recurrence. Patient may discontinue local wound care. Emollient: Recommend that the patient use an emollient such as xahv-lqw-ipjooxq Eucerin cream, Vanicream, or other lotion to the affected area. 03/07/2025 Left foot pain (ICD-10 - M79.672) 05/09/2025 Non-pressure chronic ulcer of other part of left foot limited to breakdown of skin (ICD-10 - L97.521) Ulcer Resolved: The nonviable tissue from the uler site was debrided down to normal appearing tissue. Advised patient to monitor this area for recurrence. Patient may discontinue local wound care. Emollient: Recommend that the patient use an emollient such as veel-ick-dxqiccb Eucerin cream, Vanicream, or other lotion to the affected area. 05/09/2025 Left foot pain (ICD-10 - M79.672) 05/09/2025 Atherosclerosis of [place] arteries of extremities with intermittent claudication, bilateral legs (ICD-10 - I70.213) 03/07/2025 Atherosclerosis of [place] arteries of extremities with intermittent claudication, bilateral legs (ICD-10 - I70.213) 12/20/2024 Atherosclerosis of [place] arteries of extremities with intermittent claudication, bilateral legs (ICD-10 - I70.213) 11/08/2024 Atherosclerosis of [place] arteries of extremities with intermittent claudication, bilateral legs (ICD-10 - I70.213) 12/20/2024 Peroneal tendinitis, right leg (ICD-10 - M76.71) Peroneal Tendonitis: I discussed anti-inflammatory treatment options and various means of immobilization with the patient. I educated the patient on icing and stretching, supportive shoegear, and the use of orthotic devices and bracing. Order: Xrays 3 views of the right foot from [facility]; r/o 5th metatarsal avulsion fracture. Addendum: [facility] called @ 16:38: Xrays show no evidence of fracture 03/07/2025 Peroneal tendinitis, right leg (ICD-10 - M76.71) Peroneal Tendonitis: I discussed anti-inflammatory treatment options and various means of immobilization with the patient. I educated the patient on icing and stretching, supportive shoegear, and the use of orthotic devices and bracing. Order: Xrays 3 views of the right foot from [facility]; r/o 5th metatarsal avulsion fracture. Addendum: [facility] called @ 16:38: Xrays show no evidence of fracture 05/09/2025 Peroneal tendinitis, right leg (ICD-10 - M76.71) Peroneal Tendonitis: I discussed anti-inflammatory treatment options and various means of immobilization with the patient. I educated the patient on icing and stretching, supportive shoegear, and the use of orthotic devices and bracing. Order: Xrays 3 views of the right foot from [facility]; r/o 5th metatarsal avulsion fracture. Addendum: [facility] called @ 16:38: Xrays show no evidence of fracture 05/09/2025 Strain of unspecified muscle and tendon at ankle and foot level, right foot, initial encounter (ICD-10 - S96.911A) 03/07/2025 Strain of unspecified muscle and tendon at ankle and foot level, right foot, initial encounter (ICD-10 - S96.911A) 12/20/2024 Strain of unspecified muscle and tendon at ankle and foot level, right foot, initial encounter (ICD-10 - S96.911A) 10/11/2024 Other Shoe Recommendation: Advised patient on appropriate shoe gear for protection, healing and good foot health. 11/08/2024 Other Plan Of Treatment Next Appt Details Provider Name:EZE SAMAYOA, 07/11/2025 01:10:00 PM, [address] [place] [address], [id number], Insurance Providers Payer Name Payer Address Payer Phone Subscriber Number Group Number Insured Name Patient Relationship to Insured Coverage Start Date Coverage End Date [facility] [address] [address] [place], [place] [id number] Greg Aguayo am Self - patient is the insured
--- OUTSIDE RECORDS SUMMARY | 2025-05-15 14:18 | XMS_ITS | Clinical Summary ---
Author Organization [facility] Address [address] [place] [address] Care Team Providers Care Channel Process Supervisor Name Role Phone Unavailable Primary Care Provider [...] Vaccines (1 of 2) 2003 COVID-19 Vaccine (1 - 2023-2 5 season) 2025 Colorectal Cancer Screening Colonoscopy (10 Years) 11/03/2025 [...]
[2025-05-15 14:29] LABS: Hematocrit 35.8 % (37.0-46.0); Hemoglobin 11.3 g/dL (12.4-15.3); Mean Corpuscular HGB Conc 31.6 g/dL (32-36); Mean Corpuscular Hemoglobin 28.7 pg (27.0-31.0); Mean Corpuscular Volume 90.9 fL (78.0-102.0); Platelet Count Result 172 K/mm3 (150-420); Red Blood Count 3.94 M/mm3 (4.70-6.10); White Blood Count 7.7 K/mm3 (4.8-10.8)
== END 2025-05-15 14:14 | disposition home or self-care (01) ==
LOC: CHSLAB 14:16
PROVIDERS: PCP Internal Medicine; Visit Provider Internal Medicine
DX: D64.9 Anemia, unspecified (principal)
CPT/HCPCS: 36415; 85027

== ENCOUNTER 2025-05-16 15:25 | Outpatient (CLI) | payer MEDICARE, SELFPAY ==
--- OUTSIDE RECORDS SUMMARY | 2025-02-28 09:50 | XMS_ITS ---
Author Organization [facility] Address [address] [place], [place] [address] Care Team Providers Care Trimmer Buffing Wheel Name Role Phone JEANNIE BARRAZA Unavailable [phone] Mariam Ugalde Unavailable Unavailable EZE GARCIAS Unavailable [phone] REASON FOR VISIT *General care Encounters Encounter Location Date Provider Diagnosis [address] [id number] 02/28/2025 EZE GARCIAS Non-pressure chronic ulcer of other part of left foot limited to breakdown of skin L97.521 ; Left foot pain M79.672 ; Atherosclerosis of [place] arteries of extremities with intermittent claudication, bilateral [...] the patient use an emollient such as qhbh-auk-kgdxamj Eucerin cream, Vanicream, or other lotion to the affected area. 02/28/2025 Left foot pain (ICD-10 - M79.672) 02/28/2025 Atherosclerosis of [place] arteries of extremities with intermittent claudication, bilateral legs (ICD-10 - I70.213) 02/28/2025 Peroneal tendinitis, right leg (ICD-10 - M76.71) Peroneal Tendonitis: I discussed anti-inflammatory treatment options and various means of immobilization with the patient. I educated the patient on icing and stretching, supportive shoegear, and the use of orthotic devices and bracing. Order: Xrays 3 views of the right foot from [facility]; r/o 5th metatarsal avulsion fracture. Addendum: [facility] called @ 16:38: Xrays show no [...] the patient use an emollient such as uziu-stt-ieevikf Eucerin cream, Vanicream, or other lotion to the affected area. Peroneal tendinitis, right leg Peroneal Tendonitis: I discussed anti-inflammatory treatment options and various means of immobilization with the patient. I educated the patient on icing and stretching, supportive shoegear, and the use of orthotic devices and bracing. Order: Xrays 3 views of the right foot from [facility]; r/o 5th metatarsal avulsion fracture. Addendum: [facility] called @ 16:38: Xrays show no evidence of fracture Next Appt Details Follow Up: 9 weeks and PRN, Reason: 9 weeks: At risk foot care, ulcer check. We will contact patient if the xray shows a fracture Provider Name:EZE SAMAYOA, 07/11/2025 01:10:00 PM, [address] [place] [address], [id number], Progress Notes * Greg CHRISTIANSONDOB:1954 (70 yo M)Acc No.[id number]:02/28/2025 Patient: Greg STEWARD Provider: Tootie GARCIAS :1955 A ge:70 Y S ex:Male Date:02/28/2025 [id number] Subjective: * Chief Complaints: * 1 . [...] - M79.672 3 . A therosclerosis of [place] arteries of extremities with intermittent claudication, bilateral [...] 3 views of the right foot from [facility]; r/o 5th metatarsal avulsion fracture. Addendum: [facility] called @ 16:38: Xrays show no evidence of fracture * Follow Up: 9 weeks and PRN (Reason: 9 weeks: At risk foot care, ulcer check. We will contact patient if the xray shows a fracture) * Billing Information: * Visit Code: * Procedure Codes: * Electronic signature of SHEYLA GARCIAS DPM on 05/16/2025 at 05:34 PM CDT Sign off status: Pending * Provider: Tootie GARCIAS Date: 02/28/2025 Generated for Karen Troncoso on: 0 05/16/2025 05:34 PM CDT History and Physical Notes * [...]
--- OUTSIDE RECORDS SUMMARY | 2025-03-07 08:20 | XMS_ITS ---
Author Organization [facility] Address [address] [place], [place] [address] Care Team Providers Care Drilling Assistant Name Role Phone JEANNIE BARRAZA Unavailable [phone] Mariam Ugalde Unavailable Unavailable EZE GARCIAS Unavailable [phone] REASON FOR VISIT *Wound check Medications Medication [...] smoked Encounters Encounter Location Date Provider Diagnosis [address] [id number] 03/07/2025 EZE GARCIAS Non-pressure chronic ulcer of other part of left foot limited to breakdown of skin L97.521 ; Left foot pain M79.672 ; Atherosclerosis of [place] arteries of extremities with intermittent claudication, bilateral [...] the patient use an emollient such as cljt-odr-gtuscsp Eucerin cream, Vanicream, or other lotion to the affected area. 03/07/2025 Left foot pain (ICD-10 - M79.672) 03/07/2025 Atherosclerosis of [place] arteries of extremities with intermittent claudication, bilateral legs (ICD-10 - I70.213) 03/07/2025 Peroneal tendinitis, right leg (ICD-10 - M76.71) Peroneal Tendonitis: I discussed anti-inflammatory treatment options and various means of immobilization with the patient. I educated the patient on icing and stretching, supportive shoegear, and the use of orthotic devices and bracing. Order: Xrays 3 views of the right foot from [facility]; r/o 5th metatarsal avulsion fracture. Addendum: [facility] called @ 16:38: Xrays show no [...] the patient use an emollient such as myuj-dbt-gepgizu Eucerin cream, Vanicream, or other lotion to the affected area. Peroneal tendinitis, right leg Peroneal Tendonitis: I discussed anti-inflammatory treatment options and various means of immobilization with the patient. I educated the patient on icing and stretching, supportive shoegear, and the use of orthotic devices and bracing. Order: Xrays 3 views of the right foot from [facility]; r/o 5th metatarsal avulsion fracture. Addendum: [facility] called @ 16:38: Xrays show no evidence of fracture Next Appt Details Provider Name:EZE SAMAYOA, 07/11/2025 01:10:00 PM, [address] [place] [address], [id number], Progress Notes * Niyah CHRISTIANSON:1954 (70 yo M)Acc No.[id number]:03/07/2025 Patient: Greg STEWARD Provider: Tootie GARCIAS :1955 A ge:70 Y S ex:Male Date:03/07/2025 [id number] Subjective: * Chief Complaints: * 1 . *Wound check. * HPI: H PI: Follow Up Visit P atient presents for follow up visit for a wound on the lateral side of the left foot. The wound is looking good. Patient states that there is only slight pain in the center of the wound. , MA: [facility]. * ROS: G eneral / Constitutional: [...] - M79.672 3 . A therosclerosis of [place] arteries of extremities with intermittent claudication, bilateral legs - I70.213 & #160; 4 . P eroneal tendinitis, right leg - M76.71 5 . S train of unspecified muscle and tendon at ankle and foot level, right foot, initial encounter - S96.917D Plan: * Treatment: 2. P eroneal tendinitis, right leg Notes: Peroneal Tendonitis: I discussed anti-inflammatory treatment options and various means of immobilization with the patient. I educated the patient on icing and stretching, supportive shoegear, and the use of orthotic devices and bracing. Order: Xrays 3 views of the right foot from [facility]; r/o 5th metatarsal avulsion fracture. Addendum: [facility] called @ 16:38: Xrays show no evidence of fracture * Immunizations: Immunization record has been reviewed and updated. * Billing Information: * Visit Code: 46283 Office Visit, Est Pt., Level 3. * Procedure Codes: * Electronic signature of SHEYLA GARCIAS DPM on 05/16/2025 at 05:33 PM CDT Sign off status: Pending * Provider: Tootie GARCIAS Date: 03/07/2025 Generated for Karen guerrier/Ruma/Markus on: 0 05/16/2025 05:33 PM CDT History and Physical Notes * HPI (History of Present Illness) Category Sub-Category Detail Notes Category Not es HPI Follow Up Visit Patient presents for follow up visit for a wound on the lateral side of the left foot. The wound is looking good. Patient states that there is only slight pain in the center of the wound. , [place]: [facility] Examination Category Sub-Category Detail Notes Category [...]
--- OUTSIDE RECORDS SUMMARY | 2025-05-09 08:10 | XMS_ITS ---
Author Organization [facility] Address [address] [place], [place] [id number] Care Team Providers Care Winterizer Name Role Phone JEANNIE BARRAZA Unavailable [phone] Mariam Ugalde Unavailable Unavailable EZE GARCIAS Unavailable [phone] Allergies No Known Allergies REASON FOR VISIT *General care Medications Medication SIG (Take, Route, Frequency, Duration) Notes Start Date End Date Status Amoxicillin-Pot Clavulanate 875-125 MG TAKE 1 TABLET BY MOUTH EVERY 12 HOURS Oral; Duration: 10 Days Active Encounters Encounter Location Date Provider Diagnosis [address] [id number] 05/09/2025 EZE GARCIAS Non-pressure chronic ulcer of other part of left foot limited to breakdown of skin L97.521 ; Left foot pain M79.672 ; Atherosclerosis of [place] arteries of extremities with intermittent claudication, bilateral [...] the patient use an emollient such as zzoq-xce-lnjnnqa Eucerin cream, Vanicream, or other lotion to the affected area. 05/09/2025 Left foot pain (ICD-10 - M79.672) 05/09/2025 Atherosclerosis of [place] arteries of extremities with intermittent claudication, bilateral legs (ICD-10 - I70.213) 05/09/2025 Peroneal tendinitis, right leg (ICD-10 - M76.71) Peroneal Tendonitis: I discussed anti-inflammatory treatment options and various means of immobilization with the patient. I educated the patient on icing and stretching, supportive shoegear, and the use of orthotic devices and bracing. Order: Xrays 3 views of the right foot from [facility]; r/o 5th metatarsal avulsion fracture. Addendum: [facility] called @ 16:38: Xrays show no evidence of fracture 05/09/2025 Strain of unspecified muscle and tendon at [...] the patient use an emollient such as bnin-xce-hubhhuk Eucerin cream, Vanicream, or other lotion to the affected area. Peroneal tendinitis, right leg Peroneal Tendonitis: I discussed anti-inflammatory treatment options and various means of immobilization with the patient. I educated the patient on icing and stretching, supportive shoegear, and the use of orthotic devices and bracing. Order: Xrays 3 views of the right foot from [facility]; r/o 5th metatarsal avulsion fracture. Addendum: [facility] called @ 16:38: Xrays show no evidence of fracture Next Appt Details Follow Up: 9 weeks and PRN, Reason: 9 weeks: At risk foot care, ulcer check. We will contact patient if the xray shows a fracture Provider Name:EZE SAMAYOA, 07/11/2025 01:10:00 PM, [address] [place] [address], [id number], Progress Notes * Niyah CHRISTIANSON:1954 (70 yo M)Acc No.[id number]:05/09/2025 Patient: Greg STEWARD Provider: Tootie MATHEWDREW METZGERFORD :1955 A ge:70 Y S ex:Male Date:05/09/2025 Address:[address] [place], [place] [id number] Subjective: * Chief Complaints: * 1 . *General care. * HPI: H PI: General care P [...] confusion, difficulty speaking, dizziness. * Medical History: N o Reported Medical History.Medical History Verified. * Surgical History: D enies Past Surgical History. * Hospitalization/Major Diagno stic Procedure: D enies Past Hospitalization. * Family History: N o Family History documented.. * Medications: T aking Amoxicillin-Pot Clavulanate 875-125 MG Tablet TAKE 1 TABLET BY MOUTH EVERY 12 HOURS Oral , Medication List reviewed and reconciled with the patient * Allergies: N .K.D.A. Objective: * Vitals: * Examination: C onstitutional: [...] - M79.672 3 . A therosclerosis of [place] arteries of extremities with intermittent claudication, bilateral legs - I70.213 & #160; 4 . P eroneal tendinitis, right leg - M76.71 5 . S train of unspecified muscle and tendon at ankle and foot level, right foot, initial encounter - S96.171A Plan: * Treatment: 2. P eroneal tendinitis, right leg Notes: Peroneal Tendonitis: I discussed anti-inflammatory treatment options and various means of immobilization with the patient. I educated the patient on icing and stretching, supportive shoegear, and the use of orthotic devices and bracing. Order: Xrays 3 views of the right foot from [facility]; r/o 5th metatarsal avulsion fracture. Addendum: [facility] called @ 16:38: Xrays show no [...] status: Pending * Provider: Tootie GARCIAS Date: 05/09/2025 Generated for Karen guerrier/Ruma/Markus on: 0 05/16/2025 05:34 PM CDT History [...]
[2025-05-16 15:41] LABS: Immature Reticulocyte Fraction 23.1 % (2.0-16.52); Reticulocyte Hemoglobin Conten 33.6 pg (28.0-35.0); Reticulocytes Absolute 0.08 M/mm3 (0.02-0.10)
[2025-05-16 16:04] LABS: Iron 83 ug/dL (49-181)
[2025-05-16 16:40] LABS: Ferritin 29.80 ng/mL (11.1-264)
--- OUTSIDE RECORDS SUMMARY | 2025-05-16 17:34 | XMS_ITS | Clinical Summary ---
Author Organization [facility] Address [address] [place] [address] Care Team Providers Care Appeals Officer Name Role Phone Unavailable Primary Care Provider [...]
--- OUTSIDE RECORDS SUMMARY | 2025-05-16 17:34 | XMS_ITS | Patient Health Record ---
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 arteries of extremities with intermittent claudication, bilateral legs I70.213 ; Peroneal tendinitis, right leg M76.71 and Strain of unspecified muscle and tendon at ankle and foot level, right foot, initial encounter S96.911A [address] [id number] 10/11/2024 JEANNIE SNOOK Non-pressure chronic ulcer of other part of left foot with unspecified severity L97.529 and Left foot pain M79.[address] [id number] 10/25/2024 JEANNIE SNOOK Non-pressure chronic ulcer of other part of left foot with unspecified severity L97.529 and Left foot pain M79.[address] [id number] 11/08/2024 JEANNIE SNOOK Left foot pain M79.6 72 ; Non-pressure chronic ulcer of other part of left foot limited to breakdown of skin L97.[address] of [address] arteries of extremities with intermittent claudication, bilateral legs I70.[address] [id number] 12/20/2024 JEANNIE SNOOK Left foot pain M79.6 72 ; Non-pressure chronic ulcer of other part of left foot limited to breakdown of skin L97.521 ; Atherosclerosis of [place] arteries of extremities with intermittent claudication, bilateral [...] the patient use an emollient such as bgaw-oka-gzjzecs Eucerin cream, Vanicream, or other lotion to [...] the patient use an emollient such as ovje-xfk-hwgjpef Eucerin cream, Vanicream, or other lotion to [...] the patient use an emollient such as ikle-hog-hqkvuui Eucerin cream, Vanicream, or other lotion to [...] the patient use an emollient such as xpiu-npu-cbrxwya Eucerin cream, Vanicream, or other lotion to the affected area. 05/09/2025 Left foot pain (ICD-10 - M79.672) 05/09/[address] [place] arteries of extremities with intermittent claudication, bilateral legs (ICD-10 - I70.213) 03/07/[address] [place] arteries of extremities with intermittent claudication, bilateral legs (ICD-10 - I70.213) 12/20/[address] [place] arteries of extremities with intermittent claudication, bilateral legs (ICD-10 - I70.213) 11/08/[address] [place] arteries of extremities with intermittent claudication, bilateral legs (ICD-10 - I70.213) 12/20/2024 Peroneal tendinitis, right leg (ICD-10 - M76.71) Peroneal Tendonitis: I discussed anti-inflammatory treatment options and various means of immobilization with the patient. I educated the patient on icing and stretching, supportive shoegear, and the use of orthotic devices and bracing. Order: Xrays 3 views of the right foot from [facility]; r/o 5th metatarsal avulsion fracture. Addendum: [facility] called @ 16:38: Xrays show no evidence of fracture 03/07/2025 Peroneal tendinitis, right leg (ICD-10 - M76.71) Peroneal Tendonitis: I discussed anti-inflammatory treatment options and various means of immobilization with the patient. I educated the patient on icing and stretching, supportive shoegear, and the use of orthotic devices and bracing. Order: Xrays 3 views of the right foot from [facility]; r/o 5th metatarsal avulsion fracture. Addendum: [facility] called @ 16:38: Xrays show no evidence of fracture 05/09/2025 Peroneal tendinitis, right leg (ICD-10 - M76.71) Peroneal Tendonitis: I discussed anti-inflammatory treatment options and various means of immobilization with the patient. I educated the patient on icing and stretching, supportive shoegear, and the use of orthotic devices and bracing. Order: Xrays 3 views of the right foot from [facility]; r/o 5th metatarsal avulsion fracture. Addendum: [facility] called @ 16:38: Xrays show no [...] Details Provider Name:EZE SAMAYOA, 07/11/2025 01:10:00 PM, [address] [place] [address], [id number], Insurance Providers Payer Name Payer Address Payer Phone Subscriber Number Group Number Insured Name Patient Relationship to Insured Coverage Start Date Coverage End Date [facility] [address] [address] [place], [place] [id number] Greg Aguayo am Self - patient is the insured
[2025-05-17 07:39] LABS: Carcinoembryonic Antigen 2.52
== END 2025-05-16 15:26 | disposition home or self-care (01) ==
LOC: CHSLAB 15:28
PROVIDERS: PCP Internal Medicine; Visit Provider Internal Medicine
DX: D64.9 Anemia, unspecified (principal); Z85.038 Personal history of other malignant neoplasm of large intestine
CPT/HCPCS: 36415; 82378; 82728; 83540; 85046

== ENCOUNTER 2025-05-20 13:31 | Outpatient (CLI) | payer MEDICARE, SELFPAY ==
--- OUTSIDE RECORDS SUMMARY | 2025-02-28 09:50 | XMS_ITS ---
Author Organization [facility] Address [address] [place], [place] [id number] Care Team Providers Care Air Brake Tester Name Role Phone JEANNIE BARRAZA Unavailable [phone] Mariam Ugalde Unavailable Unavailable EZE GARCIAS Unavailable [phone] REASON FOR VISIT *General care Encounters Encounter Location Date Provider Diagnosis [address] [id number] 02/28/2025 EZE GARCIAS Non-pressure chronic ulcer of other part of left foot limited to breakdown of skin L97.521 ; Left foot pain M79.672 ; Atherosclerosis of [place] arteries of extremities with intermittent claudication, bilateral [...] the patient use an emollient such as tprt-wvl-qqnhzkv Eucerin cream, Vanicream, or other lotion to the affected area. 02/28/2025 Left foot pain (ICD-10 - M79.672) 02/28/2025 Atherosclerosis of [place] arteries of extremities with intermittent claudication, bilateral legs (ICD-10 - I70.213) 02/28/2025 Peroneal tendinitis, right leg (ICD-10 - M76.71) Peroneal Tendonitis: I discussed anti-inflammatory treatment options and various means of immobilization with the patient. I educated the patient on icing and stretching, supportive shoegear, and the use of orthotic devices and bracing. Order: Xrays 3 views of the right foot from [facility]; r/o 5th metatarsal avulsion fracture. Addendum: [facility] called @ 16:38: Xrays show no evidence [...] the patient use an emollient such as mfwa-zpc-tnsonmi Eucerin cream, Vanicream, or other lotion to the affected area. Peroneal tendinitis, right leg Peroneal Tendonitis: I discussed anti-inflammatory treatment options and various means of immobilization with the patient. I educated the patient on icing and stretching, supportive shoegear, and the use of orthotic devices and bracing. Order: Xrays 3 views of the right foot from [facility]; r/o 5th metatarsal avulsion fracture. Addendum: [facility] called @ 16:38: Xrays show no evidence of fracture Next Appt Details Follow Up: 9 weeks and PRN, Reason: 9 weeks: At risk foot care, ulcer check. We will contact patient if the xray shows a fracture Provider Name:EZE SAMAYOA, 07/11/2025 01:10:00 PM, [address] [place] [address], [id number], Progress Notes * Greg CHRISTIANSONDOB:1954 (70 yo M)Acc No.[id number]:02/28/2025 Patient: Greg STEWARD Provider: Tootie GARCIAS :1955 A ge:70 Y S ex:Male Date:02/28/2025 [facility] Subjective: * Chief Complaints: * 1 [...] - M79.672 3 . A therosclerosis of [place] arteries of extremities with intermittent claudication, bilateral [...] 3 views of the right foot from [facility]; r/o 5th metatarsal avulsion fracture. Addendum: [facility] called @ 16:38: Xrays show no evidence of fracture * Follow Up: 9 weeks and PRN (Reason: 9 weeks: At risk foot care, ulcer check. We will contact patient if the xray shows a fracture) * Billing Information: * Visit Code: * Procedure Codes: * Electronic signature of SHEYLA GARCIAS DPM on 05/20/2025 at 01:58 PM CDT Sign off status: Pending * Provider: Tootie GARCIAS Date: 02/28/2025 Generated for Karen Troncoso on: 0 05/20/2025 01:58 PM CDT History and Physical Notes * [...]
--- OUTSIDE RECORDS SUMMARY | 2025-03-07 08:20 | XMS_ITS ---
Author Organization [facility] Address [address] [place], [place] [id number] Care Team Providers Care Enterprise Solutions Architect Name Role Phone JEANNIE BARRAZA Unavailable [phone] Mariam Ugalde Unavailable Unavailable EZE GARCIAS Unavailable [phone] REASON FOR VISIT *Wound check Medications Medication [...] smoked Encounters Encounter Location Date Provider Diagnosis [address] [phone] 03/07/2025 EZE GARCIAS Non-pressure chronic ulcer of other part of left foot limited to breakdown of skin L97.521 ; Left foot pain M79.672 ; Atherosclerosis of [place] arteries of extremities with intermittent claudication, bilateral [...] the patient use an emollient such as cxkm-zgc-bzzutvy Eucerin cream, Vanicream, or other lotion to the affected area. 03/07/2025 Left foot pain (ICD-10 - M79.672) 03/07/2025 Atherosclerosis of [place] arteries of extremities with intermittent claudication, bilateral legs (ICD-10 - I70.213) 03/07/2025 Peroneal tendinitis, right leg (ICD-10 - M76.71) Peroneal Tendonitis: I discussed anti-inflammatory treatment options and various means of immobilization with the patient. I educated the patient on icing and stretching, supportive shoegear, and the use of orthotic devices and bracing. Order: Xrays 3 views of the right foot from [facility]; r/o 5th metatarsal avulsion fracture. Addendum: [facility] called @ 16:38: Xrays show [...] the patient use an emollient such as cjwy-dhr-fybpwqo Eucerin cream, Vanicream, or other lotion to the affected area. Peroneal tendinitis, right leg Peroneal Tendonitis: I discussed anti-inflammatory treatment options and various means of immobilization with the patient. I educated the patient on icing and stretching, supportive shoegear, and the use of orthotic devices and bracing. Order: Xrays 3 views of the right foot from [facility]; r/o 5th metatarsal avulsion fracture. Addendum: [facility] called @ 16:38: Xrays show no evidence of fracture Next Appt Details Provider Name:EZE SAMAYOA, 07/11/2025 01:10:00 PM, [address] [place] [address], [id number], Progress Notes * Niyah CHRISTIANSON:1954 (70 yo M)Acc No.[id number]:03/07/2025 Patient: Greg STEWARD Provider: Tootie GARCIAS :1955 A ge:70 Y S ex:Male Date:03/07/2025 Address[id number] Subjective: * Chief Complaints: * 1 . *Wound check. * HPI: H PI: Follow Up Visit P atient presents for follow up visit for a wound on the lateral side of the left foot. The wound is looking good. Patient states that there is only slight pain in the center of the wound. , MA: [facility]. * ROS: G eneral / Constitutional: [...] - M79.672 3 . A therosclerosis of [place] arteries of extremities with intermittent claudication, bilateral legs - I70.213 & #160; 4 . P eroneal tendinitis, right leg - M76.71 5 . S train of unspecified muscle and tendon at ankle and foot level, right foot, initial encounter - S96.912P Plan: * Treatment: 2. P eroneal tendinitis, right leg Notes: Peroneal Tendonitis: I discussed anti-inflammatory treatment options and various means of immobilization with the patient. I educated the patient on icing and stretching, supportive shoegear, and the use of orthotic devices and bracing. Order: Xrays 3 views of the right foot from [facility]; r/o 5th metatarsal avulsion fracture. Addendum: [facility] called @ 16:38: Xrays show no evidence of fracture * Immunizations: Immunization record has been reviewed and updated. * Billing Information: * Visit Code: 64696 Office Visit, Est Pt., Level 3. * Procedure Codes: * Electronic signature of SHEYLA GARCIAS DPM on 05/20/2025 at 01:58 PM CDT Sign off status: Pending * Provider: Tootie GARCIAS Date: 03/07/2025 Generated for Karen guerrier/Ruma/Markus on: 05/20/2025 01:58 PM CDT History and Physical Notes * HPI (History of Present Illness) Category Sub-Category Detail Notes Category Not es HPI Follow Up Visit Patient presents for follow up visit for a wound on the lateral side of the left foot. The wound is looking good. Patient states that there is only slight pain in the center of the wound. , MA: [facility] Examination Category Sub-Category Detail Notes Category [...]
--- OUTSIDE RECORDS SUMMARY | 2025-05-09 08:10 | XMS_ITS ---
Author Organization [facility] Address [address] [place], [place] [address] Care Team Providers Care Manufactured Buildings Supervisor Name Role Phone JEANNIE BARRAZA Unavailable [phone] Mariam Ugalde Unavailable Unavailable EZE GARCIAS Unavailable [phone] Allergies No Known Allergies REASON FOR VISIT *General care Medications Medication SIG (Take, Route, Frequency, Duration) Notes Start Date End Date Status Amoxicillin-Pot Clavulanate 875-125 MG TAKE 1 TABLET BY MOUTH EVERY 12 HOURS Oral; Duration: 10 Days Active Encounters Encounter Location Date Provider Diagnosis [address] [id number] 05/09/2025 EZE GARCIAS Non-pressure chronic ulcer of other part of left foot limited to breakdown of skin L97.521 ; Left foot pain M79.672 ; Atherosclerosis of [place] arteries of extremities with intermittent claudication, bilateral [...] the patient use an emollient such as ukip-fme-yjxmcgw Eucerin cream, Vanicream, or other lotion to the affected area. 05/09/2025 Left foot pain (ICD-10 - M79.672) 05/09/2025 Atherosclerosis of [place] arteries of extremities with intermittent claudication, bilateral legs (ICD-10 - I70.213) 05/09/2025 Peroneal tendinitis, right leg (ICD-10 - M76.71) Peroneal Tendonitis: I discussed anti-inflammatory treatment options and various means of immobilization with the patient. I educated the patient on icing and stretching, supportive shoegear, and the use of orthotic devices and bracing. Order: Xrays 3 views of the right foot from [facility]; r/o 5th metatarsal avulsion fracture. Addendum: [facility] called @ 16:38: Xrays show [...] the patient use an emollient such as ddvv-ilu-tmghyud Eucerin cream, Vanicream, or other lotion to the affected area. Peroneal tendinitis, right leg Peroneal Tendonitis: I discussed anti-inflammatory treatment options and various means of immobilization with the patient. I educated the patient on icing and stretching, supportive shoegear, and the use of orthotic devices and bracing. Order: Xrays 3 views of the right foot from [facility]; r/o 5th metatarsal avulsion fracture. Addendum: [facility] called @ 16:38: Xrays show no evidence of fracture Next Appt Details Follow Up: 9 weeks and PRN, Reason: 9 weeks: At risk foot care, ulcer check. We will contact patient if the xray shows a fracture Provider Name:EZE SAMAYOA, 07/11/2025 01:10:00 PM, [address] [place] [address], [id number], Progress Notes * Niyah CHRISTIANSON:1954 (70 yo M)Acc No.[id number]:05/09/2025 Patient: Greg STEWARD Provider: Tootie MATHEWDREW METZGERFORD :1955 A ge:70 Y S ex:Male Date:05/09/2025 Address:[address] [place], [place] [id number] Subjective: * Chief Complaints: * 1 . [...] - M79.672 3 . A therosclerosis of [place] arteries of extremities with intermittent claudication, bilateral legs - I70.213 & #160; 4 . P eroneal tendinitis, right leg - M76.71 5 . S train of unspecified muscle and tendon at ankle and foot level, right foot, initial encounter - S96.041A Plan: * Treatment: 2. P eroneal tendinitis, right leg Notes: Peroneal Tendonitis: I discussed anti-inflammatory treatment options and various means of immobilization with the patient. I educated the patient on icing and stretching, supportive shoegear, and the use of orthotic devices and bracing. Order: Xrays 3 views of the right foot from [facility]; r/o 5th metatarsal avulsion fracture. Addendum: [facility] called @ 16:38: Xrays show [...] Date: 05/09/2025 Generated for Karen guerrier/Ruma/Markus on: 05/20/2025 01:58 [...]
--- OUTSIDE RECORDS SUMMARY | 2025-05-20 13:58 | XMS_ITS | Patient Health Record ---
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 ; Left foot pain M79.672 ; Atherosclerosis of [place] arteries of extremities with intermittent claudication, bilateral legs I70.213 ; Peroneal tendinitis, right leg M76.71 and Strain of unspecified muscle and tendon at ankle and foot level, right foot, initial encounter S96.911A [facility] [address] [place], [place] [id number] 05/09/2025 EZE GARCIAS Non-pressure chronic ulcer of other part of left foot limited to breakdown of skin L97.521 ; Left foot pain M79.672 ; Atherosclerosis of [place] arteries of extremities with intermittent claudication, bilateral legs I70.213 ; Peroneal tendinitis, right leg M76.71 and Strain of unspecified muscle and tendon at ankle and foot level, right foot, initial encounter S96.911A [address] [id number] 10/11/2024 JEANNIE SNOOK Non-pressure chronic ulcer of other part of left foot with unspecified severity L97.529 and Left foot pain M79.[address] [id number] 10/25/2024 JEANNIE SNOOK Non-pressure chronic ulcer of other part of left foot with unspecified severity L97.529 and Left foot pain M79.[address] [id number] 11/08/2024 JEANNIE SNOOK Left foot pain M79.6 72 ; Non-pressure chronic ulcer of other part of left foot limited to breakdown of skin L97.521 and Atherosclerosis of [place] arteries of extremities with intermittent claudication, bilateral legs I70.[address] [id number] 12/20/2024 JEANNIE SNOOK Left foot pain M79.6 72 ; Non-pressure chronic ulcer of other part of left foot limited to breakdown of skin L97.521 ; Atherosclerosis of [place] arteries of extremities with intermittent claudication, bilateral [...] the patient use an emollient such as cxbn-fsc-jwtvumv Eucerin cream, Vanicream, or other lotion to [...] the patient use an emollient such as oplc-kgw-emuyvrb Eucerin cream, Vanicream, or other lotion to [...] the patient use an emollient such as urbq-bhg-jnqmmdq Eucerin cream, Vanicream, or other lotion to [...] the patient use an emollient such as qexy-gtc-fmslvya Eucerin cream, Vanicream, or other lotion to the affected area. 05/09/2025 Left foot pain (ICD-10 - M79.672) 05/09/2025 Atherosclerosis of [place] arteries of extremities with intermittent claudication, bilateral legs (ICD-10 - I70.213) 03/07/2025 Atherosclerosis of [place] arteries of extremities with intermittent claudication, bilateral legs (ICD-10 - I70.213) 12/20/2024 Atherosclerosis of [place] arteries of extremities with intermittent claudication, bilateral legs (ICD-10 - I70.213) 11/08/2024 Atherosclerosis of [place] arteries of extremities with intermittent claudication, bilateral legs (ICD-10 - I70.213) 12/20/2024 Peroneal tendinitis, right leg (ICD-10 - M76.71) Peroneal Tendonitis: I discussed anti-inflammatory treatment options and various means of immobilization with the patient. I educated the patient on icing and stretching, supportive shoegear, and the use of orthotic devices and bracing. Order: Xrays 3 views of the right foot from [facility]; r/o 5th metatarsal avulsion fracture. Addendum: [facility] called @ 16:38: Xrays show no evidence of fracture 03/07/2025 Peroneal tendinitis, right leg (ICD-10 - M76.71) Peroneal Tendonitis: I discussed anti-inflammatory treatment options and various means of immobilization with the patient. I educated the patient on icing and stretching, supportive shoegear, and the use of orthotic devices and bracing. Order: Xrays 3 views of the right foot from [facility]; r/o 5th metatarsal avulsion fracture. Addendum: [facility] called @ 16:38: Xrays show no evidence of fracture 05/09/2025 Peroneal tendinitis, right leg (ICD-10 - M76.71) Peroneal Tendonitis: I discussed anti-inflammatory treatment options and various means of immobilization with the patient. I educated the patient on icing and stretching, supportive shoegear, and the use of orthotic devices and bracing. Order: Xrays 3 views of the right foot from [facility]; r/o 5th metatarsal avulsion fracture. Addendum: [facility] called @ 16:38: Xrays show no [...] Details Provider Name:EZE SAMAYOA, 07/11/2025 01:10:00 PM, [address] [place] [address], [id number], Insurance Providers Payer Name Payer Address Payer Phone Subscriber Number Group Number Insured Name Patient Relationship to Insured Coverage Start Date Coverage End Date [facility] [address] [address] [place], [place] [id number] Greg Aguayo am Self - patient is the insured
--- OUTSIDE RECORDS SUMMARY | 2025-05-20 13:59 | XMS_ITS | Clinical Summary ---
Author Organization [facility] Address [address] [place] [address] Care Team Providers Care Washer Off Name Role Phone Unavailable Primary Care Provider [...]
== END 2025-05-20 13:32 | disposition home or self-care (01) ==
LOC: CHSLAB 13:33
PROVIDERS: PCP Internal Medicine; Visit Provider Internal Medicine
DX: D64.9 Anemia, unspecified (principal); Z85.038 Personal history of other malignant neoplasm of large intestine
CPT/HCPCS: 82272

== ENCOUNTER 2025-08-06 14:04 | Outpatient (CLI) | payer MEDICARE, SELFPAY ==
--- OUTSIDE RECORDS SUMMARY | 2025-02-28 08:50 | XMS_ITS ---
Author Organization [facility] Address [address] [place], [place] [address] Care Team Providers Care Armhole Presser Name Role Phone JEANNIE BARRAZA Unavailable [phone] Mariam Ugalde Unavailable Unavailable EZE GARCIAS Unavailable [phone] REASON FOR VISIT *General care Encounters Encounter Location Date Provider Diagnosis [address] [id number] 02/28/2025 EZE GARCIAS Non-pressure chronic ulcer of other part of left foot limited to breakdown of skin L97.521 ; Left foot pain M79.672 ; Atherosclerosis of [place] arteries of extremities with intermittent claudication, bilateral legs I70.213 ; Peroneal tendinitis, right leg M76.71 and Strain of unspecified muscle and tendon at ankle and foot level, right foot, initial encounter S96.911A Assessments Encounter Date Diagnosis (ICD Code) Assessment Notes Treatment Notes Treatment Clinical Notes Section Notes 02/28/2025 Non-pressure chronic ulcer of other part of left foot limited to breakdown of skin (ICD-10 - L97.521) Ulcer Resolved: The nonviable tissue from the uler site was debrided down to normal appearing tissue. Advised patient to monitor this area for recurrence. Patient may discontinue local wound care. Emollient: Recommend that the patient use an emollient such as fecu-vqf-tazzrdq Eucerin cream, Vanicream, or other lotion to the affected area. 02/28/2025 Left foot pain (ICD-10 - M79.672) 02/28/2025 Atherosclerosis of [place] arteries of extremities with intermittent claudication, bilateral legs (ICD-10 - I70.213) 02/28/2025 Peroneal tendinitis, right leg (ICD-10 - M76.71) Peroneal Tendonitis: I discussed anti-inflammatory treatment options and various means of immobilization with the patient. I educated the patient on icing and stretching, supportive shoegear, and the use of orthotic devices and bracing. Order: Xrays 3 views of the right foot from [facility]; r/o 5th metatarsal avulsion fracture. Addendum: [facility] called @ 16:38: Xrays show no evidence of fracture 02/28/2025 Strain of unspecified muscle and tendon at ankle and foot level, right foot, initial encounter (ICD-10 - S96.911A) Plan Of Treatment Treatment Notes Assessment Notes Non-pressure chronic ulcer o f other part of left foot limited to breakdown of skin Ulcer Resolved: The nonviable tissue from the uler site was debrided down to normal appearing tissue. Advised patient to monitor this area for recurrence. Patient may discontinue local wound care. Emollient: Recommend that the patient use an emollient such as asyo-hof-pbvtcvr Eucerin cream, Vanicream, or other lotion to the affected area. Peroneal tendinitis, right leg Peroneal Tendonitis: I discussed anti-inflammatory treatment options and various means of immobilization with the patient. I educated the patient on icing and stretching, supportive shoegear, and the use of orthotic devices and bracing. Order: Xrays 3 views of the right foot from [facility]; r/o 5th metatarsal avulsion fracture. Addendum: [facility] called @ 16:38: Xrays show no evidence of fracture Next Appt Details Follow Up: 9 weeks and PRN, Reason: 9 weeks: At risk foot care, ulcer check. We will contact patient if the xray shows a fracture Provider Name:EZE SAMAYOA, 09/12/2025 01:10:00 PM, [address] [place] [address], [id number], History and Physical Notes * Examination Category Sub-Category Detail Notes Category Not es Dermatologic Skin findings: Skin is thin, at rophic and lacking pedal hair. There is scant hyperkeratotic lesion on the lateral aspect of the left 5th metatarsal head. Post-debridement, no evidence of ulceration noted Neurologic Gross sensation Gross sensation is intact to light touch Vascular Dorsalis pedis pulse: 1/4 bilateral Edema: No edema, bilateral Capillary refill: greater than 3 secon ds Posterior tibial pulse: 0/4 bilateral Musculoskeletal Muscle Strength Muscle strength is 5/5 in regards to dorsiflexion, plantarflexion, inversion, and eversion in bilateral lower extremities Pain on palpation base of the right 5t h metatarsal, peroneal tendons of the right foot. Constitutional Constitutional The patient is a wake, alert, well developed, well groomed and well nourished Progress Notes * Greg CHRISTIANSONDOB:1954 (70 yo M)Acc No.[id number]:02/28/2025 Patient: Greg Chu Provider: Tootie GARCIAS :1955 A ge:70 Y S ex:Male Date:02/28/2025 Address:[address] [place], [place] [id number] Subjective: * Chief Complaints: * * General care * ROS: G eneral / Constitutional: Patient denies c hills, fever, weakness, night sweats. M usculoskeletal: Patient denies c hildhood foot problems, weakness. ? P eripheral Vascular: Patient denies u lceration of feet, cold extremities. ? S kin: Patient denies d iscoloration. P atient complains of?blister, wounds. N eurologic: Patient denies b alance difficulty, confusion, difficulty speaking, dizziness. Objective: * Examination: C onstitutional: Constitutional T he patient is awake, alert, well developed, well groomed and well nourished. D ermatologic: Skin findings: S kin is thin, atrophic and lacking pedal hair. There is scant hyperkeratotic lesion on the lateral aspect of the left 5th metatarsal head. Post-debridement, no evidence of ulceration noted. V ascular: Dorsalis pedis pulse: 1 /4 b ilateral. Posterior tibial pulse: 0 /4 b ilateral. Capillary refill: g reater than 3 seconds. Edema: N o edema, bilateral . N eurologic: Gross sensation G ross sensation is intact to light touch.? M usculoskeletal: Muscle Strength M uscle strength is 5/5 in regards to dorsiflexion, plantarflexion, inversion, and eversion in bilateral lower extremities . Pain on palpation b ase of the right 5th metatarsal, peroneal tendons of the right foot.. Assessment: * Assessment: 1. N on-pressure chronic ulcer of other part of left foot limited to breakdown of skin - L97.521 (Primary) 2 . L eft foot pain - M79.672 3 . A therosclerosis of [place] arteries of extremities with intermittent claudication, bilateral legs - I70.213 & #160; 4 . P eroneal tendinitis, right leg - M76.71 5 . S train of unspecified muscle and tendon at ankle and foot level, right foot, initial encounter - S96.911A Plan: * Treatment: 2. P eroneal tendinitis, right leg Notes: Peroneal Tendonitis: I discussed anti-inflammatory treatment options and various means of immobilization with the patient. I educated the patient on icing and stretching, supportive shoegear, and the use of orthotic devices and bracing. Order: Xrays 3 views of the right foot from [facility]; r/o 5th metatarsal avulsion fracture. Addendum: [facility] called @ 16:38: Xrays show no evidence of fracture ? * Follow Up: 9 weeks and PRN (Reason: 9 weeks: At risk foot care, ulcer check. We will contact patient if the xray shows a fracture) Billing Information: * Procedure Codes: * Electronic signature of SHEYLA GARCIAS DPM on 08/06/2025 at 04:29 PM MEDICAL TECHNOLOGIST HEMATOLOGY Sign off status: Pending * Provider: Tootie GARCIAS Date: 0 02/28/2025 Generated for Karen guerrier/Ruma/Markus on: 1 10/07/2024 04:29 PM MEDICAL TECHNOLOGIST HEMATOLOGY
--- OUTSIDE RECORDS SUMMARY | 2025-03-07 07:20 | XMS_ITS ---
Author Organization [facility] Address [address] [place], [place] [id number] Care Team Providers Care Thumb Sewer Name Role Phone JEANNIE BARRAZA Unavailable [phone] Mariam Ugalde Unavailable Unavailable EZE GARCIAS Unavailable [phone] REASON FOR VISIT *Wound check Medications Medication SIG (Take, Route, Frequency, Duration) Notes Start Date End Date Status Amoxicillin-Pot Clavulanate 875-125 MG Tablet TAKE 1 TABLET BY MOUTH EVERY 12 HOURS Oral; Duration: 10 Days Active Social History Tobacco Use: Social History Observation Description Date Details (start date - stop date) Unknown if ever smoked NA - NA Social History Tobacco Use: Social Info Question Answer Notes Tobacco Control (Standard) Tobacco use: Unknown if madonna r smoked Encounters Encounter Location Date Provider Diagnosis [address] [id number] 03/07/2025 EZE GARCIAS Non-pressure chronic ulcer of other part of left foot limited to breakdown of skin L97.521 ; Left foot pain M79.672 ; Atherosclerosis of [place] arteries of extremities with intermittent claudication, bilateral legs I70.213 ; Peroneal tendinitis, right leg M76.71 and Strain of unspecified muscle and tendon at ankle and foot level, right foot, initial encounter S96.915L Assessments Encounter Date Diagnosis (ICD Code) Assessment Notes Treatment Notes Treatment Clinical Notes Section Notes 03/07/2025 Non-pressure chronic ulcer of other part of left foot limited to breakdown of skin (ICD-10 - L97.521) Ulcer Resolved: The nonviable tissue from the uler site was debrided down to normal appearing tissue. Advised patient to monitor this area for recurrence. Patient may discontinue local wound care. Emollient: Recommend that the patient use an emollient such as ezfo-ejh-ddvgiwb Eucerin cream, Vanicream, or other lotion to the affected area. 03/07/2025 Left foot pain (ICD-10 - M79.672) 03/07/2025 Atherosclerosis of [place] arteries of extremities with intermittent claudication, bilateral legs (ICD-10 - I70.213) Patient educated on risks and aggravating factors of PVD, including conservative treatment options such as a diet and exercise regimen to aid in slowing progression of vascular disease. Check and protect LE bilateral daily. Call if any changes or concerns. 03/07/2025 Peroneal tendinitis, right leg (ICD-10 - M76.71) Peroneal Tendonitis: I discussed anti-inflammatory treatment options and various means of immobilization with the patient. I educated the patient on icing and stretching, supportive shoegear, and the use of orthotic devices and bracing. Xrays show no evidence of fracture 03/07/2025 Strain of unspecified muscle and tendon at [...] the patient use an emollient such as idan-cuy-piuzufz Eucerin cream, Vanicream, or other lotion to the affected area. Atherosclerosis of [place] ar teries of extremities with intermittent claudication, bilateral legs Patient educated on risks and aggravatin g factors of PVD, including conservative treatment options such as a diet and exercise regimen to aid in slowing progression of vascular disease. Check and protect LE bilateral daily. Call if any changes or concerns. Peroneal tendinitis, right leg Peroneal Tendonitis: I discussed anti-inflammatory treatment options and various means of immobilization with the patient. I educated the patient on icing and stretching, supportive shoegear, and the use of orthotic devices and bracing. Xrays show no evidence of fracture Next Appt Details Provider Name:EZE SAMAYOA, 09/12/2025 01:10:00 PM, [address] [place] [address], [phone], History and Physical Notes * HPI (History of Present Illness) Category Sub-Category Detail Notes Category Not es HPI Follow Up Visit Patient presents for follow up visit for a wound on the lateral side of the left foot. The wound is looking good. Patient states that there is only slight pain in the center of the wound. , MA: jh Examination Category Sub-Category Detail Notes Category Not [...] Notes * Greg CHRISTIANSONDOB:1954 (70 yo M)Acc No.[id number]:03/07/2025 Patient: Nelly Greg tomlinson Provider: Tootie GARCIAS :1955 A ge:70 Y S ex:Male Date:03/07/2025 Address:[address] [place], [place] [id number] Subjective: * Chief Complaints: * * Wound check * HPI: H PI: Follow Up Visit P atient presents for follow up visit for a wound on the lateral side of the left foot. The wound is looking good. Patient states that there is only slight pain in the center of the wound. , STEFFI: jh. * ROS: G eneral / Constitutional: Patient denies c hills, fever, weakness, night sweats. M usculoskeletal: Patient denies c hildhood foot problems, weakness. ? P eripheral Vascular: Patient denies u lceration of feet, cold extremities. ? S kin: Patient denies d iscoloration. P atient complains of?blister, wounds. N eurologic: Patient denies b alance difficulty, confusion, difficulty speaking, dizziness. * Social History: T obacco Use: T obacco Control (Standard) T obacco use: U nknown if ever smoked. Social History Verified. * Medications: T akingAmoxicillin-Pot Clavulanate 875-125 MG Tablet TAKE 1 TABLET BY MOUTH EVERY 12 HOURS Oral Medication List reviewed and reconciled with the patientTaking Amoxicillin-Pot Clavulanate 875-125 MG Tablet TAKE 1 TABLET BY MOUTH EVERY 12 HOURS Oral Medication List reviewed and reconciled with the patient Objective: * Examination: C onstitutional: Constitutional T [...] - M79.672 3 . A therosclerosis of [place] arteries of extremities with intermittent claudication, bilateral legs - I70.213 & #160; 4 . P eroneal tendinitis, right leg - M76.71 5 . S train of unspecified muscle and tendon at ankle and foot level, right foot, initial encounter - S99.413T Plan: * Treatment: 2. A therosclerosis of [place] arteries of extremities with intermittent claudication, bilateral legs Notes: Patient educated on risks and aggravating factors of PVD, including conservative treatment options such as a diet and exercise regimen to aid in slowing progression of vascular disease. Check and protect LE bilateral daily. Call if any changes or concerns. 3. P eroneal tendinitis, right leg Notes: Peroneal Tendonitis: I discussed anti-inflammatory treatment options and various means of immobilization with the patient. I educated the patient on icing and stretching, supportive shoegear, and the use of orthotic devices and bracing. X rays show no evidence of fracture * Immunizations: Immunization record has been reviewed and updated. Billing Information: * Visit Code: 56869 Office Visit, Est Pt., Level 3. * Procedure Codes: * Electronic signature of SHEYLA GARCIAS DPM on 08/06/2025 at 04:29 PM ADMINISTRATIVE AND PROGRAM SPECIALIST Sign off status: Pending * Provider: Tootie GARCIAS Date: 0 03/07/2025 Generated for Karen guerrier/Ruma/Malathiitting on: 1 10/07/2024 04:29 PM ADMINISTRATIVE AND PROGRAM SPECIALIST
--- OUTSIDE RECORDS SUMMARY | 2025-05-09 07:10 | XMS_ITS ---
Author Organization [facility] Address [address] [place], [place] [id number] Care Team Providers Care Aircraft Armorer Name Role Phone JEANNIE BARRAZA Unavailable [phone] Mariam Ugalde Unavailable Unavailable EZE GARCIAS Unavailable [phone] Allergies No Known Allergies REASON FOR VISIT *General care Medications Medication SIG (Take, Route, Frequency, Duration) Notes Start Date End Date Status Amoxicillin-Pot Clavulanate 875-125 MG Tablet TAKE 1 TABLET BY MOUTH EVERY 12 HOURS Oral; Duration: 10 Days Active Encounters Encounter Location Date Provider Diagnosis [address] [id number] 05/09/2025 EZE GARCIAS Non-pressure chronic ulcer of other part of left foot limited to breakdown of skin L97.521 ; Left foot pain M79.672 and Atherosclerosis of [place] arteries of extremities with intermittent claudication, bilateral legs I70.213 Assessments Encounter Date Diagnosis (ICD Code) Assessment Notes Treatment Notes Treatment Clinical Notes Section Notes 05/09/2025 Non-pressure chronic ulcer of other part of left foot limited to breakdown of skin (ICD-10 - L97.521) Ulcer Resolved: The nonviable tissue from the uler site was debrided down to normal appearing tissue. Advised patient to monitor this area for recurrence. Patient may discontinue local wound care. Emollient: Recommend that the patient use an emollient such as rwce-hes-yhppde r Eucerin cream, Vanicream, or other lotion to the affected area. 05/09/2025 Left foot pain (ICD-10 - M79.672) 05/09/2025 Atherosclerosis of [place] arteries of extremities with intermittent claudication, bilateral legs (ICD-10 - I70.213) 05/09/2025 Other resolving Plan Of Treatment Treatment Notes Assessment Notes Non-pressure chronic ulcer o f other part of left foot limited to breakdown of skin Ulcer Resolved: The nonviable tissue from the uler site was debrided down to normal appearing tissue. Advised patient to monitor this area for recurrence. Patient may discontinue local wound care. Emollient: Recommend that the patient use an emollient such as xnno-mnc-gzpwpqw Eucerin cream, Vanicream, or other lotion to the affected area. Other resolving Next Appt Details Follow Up: 9 weeks and PRN, Reason: 9 weeks: At risk foot care, ulcer check. We will contact patient if the xray shows a fracture Provider Name:ZEE SAMAYOA, 09/12/2025 01:10:00 PM, [address] [place] [address], [id number], History and Physical Notes * HPI (History of Present Illness) Category Sub-Category Detail Notes Category Not es HPI General care Patient presents to the office for diabetic foot care. Patient states that their nails are thickened, elongated and painful. Patient states that it is aggravated by shoe gear. Onset is gradual., Patient denies taking prescription blood thinners but does take a daily aspirin., Date last seen by Dr. Ugalde was 03/2025., Initials nd Examination Category Sub-Category Detail Notes Category Not [...] groomed and well nourished Progress Notes * Niyah CHRISTIASNON:1954 (70 yo M)Acc No.[id number]:05/09/2025 Patient: Greg Chu Provider: Tootie GARCIAS :1955 A ge:70 Y S ex:Male Date:05/09/2025 Address:[address] [place], [place] [id number] Subjective: * Chief Complaints: * * General care * HPI: H PI: General care P atvalerie presents to the office for diabetic foot care. Patient states that their nails are thickened, elongated and painful. Patient states that it is aggravated by shoe gear. Onset is gradual., Patient denies taking prescription blood thinners but does take a daily aspirin., Date last seen by Dr. Ugalde was 03/2025., Initials nd. * ROS: G eneral / Constitutional: Patient denies c hills, fever, weakness, night sweats. M usculoskeletal: Patient denies c hildhood foot problems, weakness. ? P eripheral Vascular: Patient denies u lceration of feet, cold extremities. ? S kin: Patient denies d iscoloration. P atient complains of?blister, wounds. N eurologic: Patient denies b alance difficulty, confusion, difficulty speaking, dizziness. * Medical History: Denies Past Medical History No Medical History Documented Medical History Verified * Surgical History: Denies Past Surgical History. Surgical History verified. * Hospitalization/Major Diagno stic Procedure: Denies Past Hospitalization. Hospitalization Verified. * Family History: N o Family History documented.. F amily History Verified.. * Social History: Social History Verified. No Social History documented. * Medications: T akingAmoxicillin-Pot Clavulanate 875-125 MG Tablet TAKE 1 TABLET BY MOUTH EVERY 12 HOURS Oral Medication List reviewed and reconciled with the patientTaking Amoxicillin-Pot Clavulanate 875-125 MG Tablet TAKE 1 TABLET BY MOUTH EVERY 12 HOURS Oral Medication List reviewed and reconciled with the patient * Allergies: N .K.D.A.yesAllergies Verified. Objective: * Examination: C onstitutional: Constitutional T [...] - M79.672 3 . A therosclerosis of [place] arteries of extremities with intermittent claudication, bilateral legs - I70.213 & #160; Plan: * Treatment: 2. O thers Notes: resolving * Preventive Medicine: Screenings: F all risk screening F all Risk Assessment: N o falls in the past year. * Follow Up: 9 weeks and PRN (Reason: 9 weeks: At risk foot care, ulcer check. We will contact patient if the xray shows a fracture) Billing Information: * Visit Code: 45985 Office Visit, Est Pt., Level 3. * Procedure Codes: * Electronic signature of SHEYLA GARCIAS DPM on 08/06/2025 at 04:29 PM TRACK MACHINE OPERATOR REPAIRER Sign off status: Pending * Provider: Tootie GARCIAS Date: 0 05/09/2025 Generated for Karen guerrier/Ruma/Markus on: 1 10/07/2024 04:29 PM TRACK MACHINE OPERATOR REPAIRER
--- OUTSIDE RECORDS SUMMARY | 2025-07-11 07:10 | XMS_ITS ---
Author Organization [facility] Address [address] [place], [place] [id number] Care Team Providers Care Home Energy Consultant Name Role Phone JEANNIE BARRAZA Unavailable [phone] Mariam Ugalde Unavailable Unavailable EZE GARCIAS Unavailable [phone] Allergies No Known Allergies REASON FOR VISIT *General care Medications Medication SIG (Take, Route, Frequency, Duration) Notes Start Date End Date Status Amoxicillin-Pot Clavulanate 875-125 MG Tablet TAKE 1 TABLET BY MOUTH EVERY 12 HOURS Oral; Duration: 10 Days Active Encounters Encounter Location Date Provider Diagnosis [address] [id number] 07/11/2025 EZE GARCIAS Tinea unguium B35.1 ; Pain in left toe(s) M79.675 ; Pain in right toe(s) M79.674 ; Left foot pain M79.672 ; Atherosclerosis of [place] arteries of extremities with intermittent claudication, bilateral legs I70.213 ; Type 2 diabetes mellitus with other circulatory complications E11.59 and Acquired keratosis [keratoderma] palmaris et plantaris L85.1 Assessments Encounter Date Diagnosis (ICD Code) Assessment Notes Treatment Notes Treatment Clinical Notes Section Notes 07/11/2025 Tinea unguium (ICD-10 - B35.1) 07/11/2025 Pain in left toe(s) (ICD-10 - M79.675) 07/11/2025 Pain in right toe(s) (ICD-10 - M79.674) 07/11/2025 Left foot pain (ICD-10 - M79.672) 07/11/2025 Atherosclerosis of [place] arteries of extremities with intermittent claudication, bilateral legs (ICD-10 - I70.213) Patient educated on risks and aggravating factors of PVD, including conservative treatment options such as a diet and exercise regimen to aid in slowing progression of vascular disease. Check and protect LE bilateral daily. Call if any changes or concerns. 07/11/2025 Type 2 diabetes mellitus with other circulatory complications (ICD-10 - E11.59) 07/11/2025 Acquired keratosis [keratoderma] palmaris et plantaris (ICD-10 - L85.1) 07/11/2025 Other resolving Ulcer Resolved: The nonviable tissue from the uler site was debrided down to normal appearing tissue. Advised patient to monitor this area for recurrence. Patient may discontinue local wound care. Emollient: Recommend that the patient use an emollient such as jlaa-qga-kpcfarz Eucerin cream, Vanicream, or other lotion to the affected area. Peroneal Tendonitis healing well. He is considering orthotics. He uses a met pad in his shoes. I discussed anti-inflammatory treatment options and various means of immobilization with the patient. I educated the patient on icing and stretching, supportive shoegear, and the use of orthotic devices and bracing. Ordered: Xrays 3 views of the right foot from [facility]; r/o 5th metatarsal avulsion fracture last visit. No fracture Plan Of Treatment Treatment Notes Assessment Notes Atherosclerosis of [place]ies of extremities with intermittent claudication, bilateral legs Patient educated on risks and aggravatin g factors of PVD, including conservative treatment options such as a diet and exercise regimen to aid in slowing progression of vascular disease. Check and protect LE bilateral daily. Call if any changes or concerns. Other resolving Ulcer Resolved: The nonviable tissue from the uler site was debrided down to normal appearing tissue. Advised patient to monitor this area for recurrence. Patient may discontinue local wound care. Emollient: Recommend that the patient use an emollient such as idli-jqv-vfjicyc Eucerin cream, Vanicream, or other lotion to the affected area. Peroneal Tendonitis healing well. He is considering orthotics. He uses a met pad in his shoes. I discussed anti-inflammatory treatment options and various means of immobilization with the patient. I educated the patient on icing and stretching, supportive shoegear, and the use of orthotic devices and bracing. Ordered: Xrays 3 views of the right foot from [facility]; r/o 5th metatarsal avulsion fracture last visit. No fracture Next Appt Details Follow Up: 9 weeks and PRN, Reason: 9 weeks: At risk foot care, ulcer check. We will contact patient if the xray shows a fracture Provider Name:EZE SAMAYOA, 09/12/2025 01:10:00 PM, [address] [place] [address], [id number], History and Physical Notes * HPI (History [...] Date last seen by Dr. Ugalde was March 2025., Initials ab Examination Category Sub-Category Detail Notes Category Not [...] and well nourished Progress Notes * Greg WUDOB:1954 (70 yo M)Acc No.[id number]:07/11/2025 Patient: Nelly Greg tomlinson Provider: Tootie GARCIAS :1955 A ge:70 Y S ex:Male Date:07/11/2025 Address:[address] [place], [place] [id number] Subjective: * Chief Complaints: * * General care * HPI: H PI: General care P monica presents to the office for diabetic foot care. Patient states that their nails are thickened, elongated and painful. Patient states that it is aggravated by shoe gear. Onset is gradual., Patient denies taking prescription blood thinners but does take a daily aspirin., Date last seen by Dr. Ugalde was March 2025., Initials ab. * ROS: G eneral / Constitutional: Patient [...] Hospitalization. Hospitalization Verified. * Family History: N on-Contributory.. * Social History: Social History Verified. No [...] the right foot.. Assessment: * Assessment: 1. T inea unguium - B35.1 (Primary) 2 . P ain in left toe(s) - M79.675 3 . P ain in right toe(s) - M79.674 4 . L eft foot pain - M79.672 5 . A therosclerosis of [place] arteries of extremities with intermittent claudication, bilateral legs - I70.213 6 . T ype 2 diabetes mellitus with other circulatory complications - E11.59 7 . A cquired keratosis [keratoderma] palmaris et plantaris - L85.1 Plan: * Treatment: 2. O thers Notes: resolving Ulcer Resolved: The nonviable tissue from the uler site was debrided down to normal appearing tissue. Advised patient to monitor this area for recurrence. Patient may discontinue local wound care. E mollient: Recommend that the patient use an emollient such as jqvs-rip-xyahyan Eucerin cream, Vanicream, or other lotion to the affected area. Peroneal Tendonitis healing well. He is considering orthotics. He uses a met pad in his shoes. I discussed anti-inflammatory treatment options and various means of immobilization with the patient. I educated the patient on icing and stretching, supportive shoegear, and the use of orthotic devices and bracing. Ordered: Xrays 3 views of the right foot from [facility]; r/o 5th metatarsal avulsion fracture last visit. No fracture * Preventive Medicine: Screenings: F all risk screening F all Risk Assessment: N o falls in the past year, P rodrigo of Care: D ocumented. * Follow Up: 9 weeks and PRN (Reason: 9 weeks: At risk foot care, ulcer check. We will contact patient if the xray shows a fracture) Billing Information: * Visit Code: 58193 Office Visit, Est Pt., Level 3. * Procedure Codes: * Electronic signature of SHEYLA GARCIAS DPM on 08/06/2025 at 04:29 PM CROP QUANTITATIVE GENETICIST Sign off status: Pending * Provider: Tootie GARCIAS Date: 09/10/2024 Generated for Karen guerrier/Ruma/Markus on: 10/07/2024 04:29 PM CROP QUANTITATIVE GENETICIST
[2025-08-06 14:27] LABS: Hematocrit 38.1 % (37.0-46.0); Hemoglobin 12.1 g/dL (12.4-15.3); Mean Corpuscular HGB Conc 31.8 g/dL (32-36); Mean Corpuscular Hemoglobin 28.9 pg (27.0-31.0); Mean Corpuscular Volume 90.9 fL (78.0-102.0); Platelet Count Result 180 K/mm3 (150-420); Red Blood Count 4.19 M/mm3 (4.70-6.10); White Blood Count 6.7 K/mm3 (4.8-10.8)
[2025-08-06 14:35] LABS: Hemoglobin A1C 5.9 % (<5.7)
[2025-08-06 14:51] LABS: Alanine Aminotransferase 18 U/L (6-50); Albumin Level 4.4 g/dL (3.5-5.1); Alkaline Phosphatase 73 U/L (38-126); Anion Gap 10 mmol/L (4-12); Aspartate Amino Transferase 23 U/L (17-59); Bilirubin,Total 1.4 mg/dL (0.2-1.3); Blood Urea Nitrogen 15 mg/dL (9-20); Calcium 9.3 mg/dL (8.4-10.2); Carbon Dioxide 26 mmol/L (22-30); Chloride 105 mmol/L (98-107); Cholesterol 184 mg/dL (0-200); Creatine Kinase 64 U/L (55-170); Estimated Glomerular Filt Rate > 60; Glucose 125 mg/dL (65-110); HDL Direct 96 mg/dL; Osmolality Calculated 293 mOsm/kg (285-295); Potassium 4.5 mmol/L (3.4-5.0); Sodium 141 mmol/L (137-145); Total Protein 6.7 g/dL (6.3-8.2); Triglycerides 80 mg/dL (<150)
[2025-08-06 15:08] LABS: Free T4 Free Thyroxine 1.00 ng/dL (0.78-2.19)
[2025-08-06 15:22] LABS: Thyroid Stimulating Hormone 3.660 uIU/mL (0.465-4.680)
--- OUTSIDE RECORDS SUMMARY | 2025-08-06 16:29 | XMS_ITS | Clinical Summary ---
Author Organization [facility] Address [address] [place] [address] Care Team Providers Care Cooker Meal Name Role Phone Unavailable Primary Care Provider [...] of 2) 2003 COVID-19 Vaccine ( - 2024-2 6 season) 2025 Influenza Adult (#1) 2025 Colorectal Cancer Screening Colonoscopy (10 Years) 11/03/2025 11/04/2015 RSV Immunization or 60+ Years (1 - 1-dose 75+ series) 01/19/2028 Hepatitis A Vaccines Aged Out No long er eligible based on patient's age to complete this topic Meningococcal B Vaccine Aged Out No l [...] hx of procedure Procedure Note , Generic Conversion, - 06/25/2018 Documented hx of procedure us Generic Conversion Md [facility] PROCEDURE ORDERABLES Final Result [facility] TO EPIC CONVERSION from Last 3 Months or Most Recently Relevant to Health Maintenance
--- OUTSIDE RECORDS SUMMARY | 2025-08-06 16:29 | XMS_ITS | Patient Health Record ---
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 ; Left foot pain M79.672 ; Atherosclerosis of [place] arteries of extremities with intermittent claudication, bilateral legs I70.213 ; Peroneal tendinitis, right leg M76.71 and Strain of unspecified muscle and tendon at ankle and foot level, right foot, initial encounter S96.911A [address] [id number] 05/09/2025 EZE GARCIAS Non-pressure chronic ulcer of other part of left foot limited to breakdown of skin L97.521 ; Left foot pain M79.672 and Atherosclerosis of [place] arteries of extremities with intermittent claudication, bilateral legs I70.[address] [id number] 07/11/2025 EZE GARCIAS Tinea unguium B35.1 ; Pain in left toe(s) M79.675 ; Pain in right toe(s) M79.674 ; Left foot pain M79.672 ; Atherosclerosis of [place] arteries of extremities with intermittent claudication, bilateral legs I70.213 ; Type 2 diabetes mellitus with other circulatory complications E11.59 and Acquired keratosis [keratoderma] palmaris et plantaris L85.[address] [id number] 10/11/2024 JEANNIE SNOOK Non-pressure chronic ulcer of other part of left foot with unspecified severity L97.529 and Left foot pain M79.[address] [id number] 10/25/2024 JEANNIE SNOOK Non-pressure chronic ulcer of other part of left foot with unspecified severity L97.529 and Left foot pain M79.[address] [id number] 11/08/2024 JEANNIE SNOOK Left foot pain M79.6 70 ; Non-pressure chronic ulcer of other part of left foot limited to breakdown of skin L97.521 and Atherosclerosis of [place] arteries of extremities with intermittent claudication, bilateral legs I70.[address] [id number] 12/20/2024 JEANNIE SNOOK Left foot pain M79.6 70 ; Non-pressure chronic ulcer of other part of left foot limited to breakdown of skin L97.521 ; Atherosclerosis of [place] arteries of extremities with intermittent claudication, bilateral [...] the patient use an emollient such as qezv-nku-oyjxmxo Eucerin cream, Vanicream, or other lotion to [...] the patient use an emollient such as kihf-phx-fhpvodk Eucerin cream, Vanicream, or other lotion to [...] the patient use an emollient such as tugt-mun-anhkkqf Eucerin cream, Vanicream, or other lotion to the affected area. 05/09/2025 Non-pressure chronic ulcer of other part of left foot limited to breakdown of skin (ICD-10 - L97.521) Ulcer Resolved: The nonviable tissue from the uler site was debrided down to normal appearing tissue. Advised patient to monitor this area for recurrence. Patient may discontinue local wound care. Emollient: Recommend that the patient use an emollient such as pjwv-wzb-ijsmweg Eucerin cream, Vanicream, or other lotion to the affected area. 05/09/2025 Left foot pain (ICD-10 - M79.672) 07/11/2025 Tinea unguium (ICD-10 - B35.1) 03/07/2025 Left foot pain (ICD-10 - M79.672) 07/11/2025 Pain in left toe(s) (ICD-10 - M79.675) 07/11/2025 Pain in right toe(s) (ICD-10 - M79.674) 05/09/2025 Atherosclerosis of [place] arteries of extremities with intermittent claudication, bilateral legs (ICD-10 - I70.213) 03/07/2025 Atherosclerosis of [place] arteries of extremities with intermittent claudication, bilateral legs (ICD-10 - I70.213) Patient educated on risks and aggravating factors of PVD, including conservative treatment options such as a diet and exercise regimen to aid in slowing progression of vascular disease. Check and protect LE bilateral daily. Call if any changes or concerns. 12/20/2024 Atherosclerosis of [place] arteries of extremities with intermittent claudication, bilateral legs (ICD-10 - I70.213) 11/08/2024 Atherosclerosis of [place] arteries of extremities with intermittent claudication, bilateral [...] bracing. Xrays show no evidence of fracture 07/11/2025 Left foot pain (ICD-10 - M79.672) 07/11/2025 Atherosclerosis of [place] arteries of extremities with intermittent claudication, bilateral legs (ICD-10 - I70.213) Patient educated on risks and aggravating factors of PVD, including conservative treatment options such as a diet and exercise regimen to aid in slowing progression of vascular disease. Check and protect LE bilateral daily. Call if any changes or concerns. 03/07/2025 Strain of unspecified muscle and tendon at ankle and foot level, right foot, initial encounter (ICD-10 - S96.911A) 12/20/2024 Strain of unspecified muscle and tendon at ankle and foot level, right foot, initial encounter (ICD-10 - S96.911A) 07/11/2025 Type 2 diabetes mellitus with other circulatory complications (ICD-10 - E11.59) 07/11/2025 Acquired keratosis [keratoderma] palmaris et plantaris (ICD-10 - L85.1) 05/09/2025 Other resolving 07/11/2025 Other resolving Ulcer Resolved: The nonviable tissue from the uler site was debrided down to normal appearing tissue. Advised patient to monitor this area for recurrence. Patient may discontinue local wound care. Emollient: Recommend that the patient use an emollient such as bwbn-zkp-cppoapk Eucerin cream, Vanicream, or other lotion to [...] [facility]; r/o 5th metatarsal avulsion fracture last visit. No fracture 10/11/2024 Other Shoe Recommendation: Advised patient on appropriate shoe gear for protection, healing and good foot health. Plan Of Treatment Next Appt Details Provider Name:EZE Tidwell BEBE SOMERSRAISA, 09/12/2025 01:10:00 PM, [address] [place] [address], [id number], Insurance Providers Payer Name Payer Address Payer Phone Subscriber Number Group Number Insured Name Patient Relationship to Insured Coverage Start Date Coverage End Date [facility] [address] [address] [place], [place] [id number] Greg Aguayo am Self - patient is the insured
[2025-08-06 17:26] LABS: Add Urine Microscopic? NO; Appearance Urine Clear (Clear); Glucose Urine UA Trace (Negative); Leukocyte Esterase Ur Negative (Negative); Nitrate Urine Negative (Negative); Specific Grav Ur 1.015 (1.010-1.020)
[2025-08-06 17:36] LABS: MALB Creatinine Ratio 12.5 mg/g (0-30)
[2025-08-07 08:16] LABS: Carcinoembryonic Antigen 2.8 ng/mL (0.0-3.0)
== END 2025-08-06 14:05 | disposition home or self-care (01) ==
LOC: CHSLAB 14:06
PROVIDERS: PCP Internal Medicine; Visit Provider Internal Medicine
DX: I10 Essential (primary) hypertension (principal); E78.2 Mixed hyperlipidemia; E11.40 Type 2 diabetes mellitus with diabetic neuropathy, unspecified; Z12.5 Encounter for screening for malignant neoplasm of prostate; E53.8 Deficiency of other specified B group vitamins; G62.9 Polyneuropathy, unspecified; Z85.038 Personal history of other malignant neoplasm of large intestine; D64.9 Anemia, unspecified
CPT/HCPCS: 36415; 80053; 80061; 81003; 82043; 82378; 82550; 83036; 84439; 84443; 85027